=== PATIENT | female | born 1930 | race Caucasian/White ===

== ENCOUNTER → 2018-05-21 | Outpatient (REF) | payer MEDICARE, OTHER ==
[2018-05-21 12:01] LABS: HEMOGLOBIN 12.3 g/dl (12.0-15.5); MEAN CORPUSCULAR HGB CONC 32.4 g/dl (32.0-36.5); MEAN CORPUSCULAR VOLUME 92.7 fl (80.0-96.0); PLATELET COUNT, AUTOMATED 413 10^3/uL (150-450); WHITE BLOOD COUNT 6.6 10^3/uL (4.0-10.0)
[2018-05-21 12:34] LABS: ALT/SGPT 15 U/L (12-78); BILIRUBIN,TOTAL 0.4 MG/DL (0.2-1.0); BLOOD UREA NITROGEN 13 MG/DL (7-18); CALCIUM LEVEL 10.3 MG/DL (8.8-10.2); CARBON DIOXIDE LEVEL 23 MEQ/L (21-32); CHLORIDE LEVEL 105 MEQ/L (98-107); CHOLESTEROL LEVEL 154 MG/DL (<200); CHOLESTEROL RISK RATIO 2.298 (<5); CREATININE FOR GFR 0.94 MG/DL (0.55-1.30); GLOMERULAR FILTRATION RATE > 60.0 (>32); GLUCOSE, FASTING 106 MG/DL (70-100); HDL CHOLESTEROL 67 MG/DL (>40); LDL CHOLESTEROL 51 MG/DL (<100); NON-HDL-C 87 MG/DL; POTASSIUM SERUM 3.9 MEQ/L (3.5-5.1); SODIUM LEVEL 138 MEQ/L (136-145); TOTAL PROTEIN 7.3 GM/DL (6.4-8.2); TRIGLYCERIDES LEVEL 181 MG/DL (<150)
== END ==
LOC: M SFHCPLAZ 10:12
PROVIDERS: ATTEND Nurse Practitioner Adult Health
DX: I10 Essential (primary) hypertension (principal); I48.91 Unspecified atrial fibrillation; E03.9 Hypothyroidism, unspecified; E78.00 Pure hypercholesterolemia, unspecified
CPT/HCPCS: 36415; 80053; 80061; 84443; 85027; G0463

== ENCOUNTER → 2018-09-18 | Outpatient (CLI) | payer MEDICARE, OTHER | LOC: M SMT 15:04 | PROVIDERS: ATTEND Internal Medicine Cardiovascular Disease | DX: Z98.61 Coronary angioplasty status (principal) ==

== ENCOUNTER → 2018-11-05 | Outpatient (CLI) | payer MEDICARE, OTHER ==
[2018-11-05 16:16] LABS: CALCIUM LEVEL 9.9 MG/DL (8.8-10.2); CREATININE FOR GFR 0.97 MG/DL (0.55-1.30); GLOMERULAR FILTRATION RATE 57.8 (>32); POTASSIUM SERUM 4.7 MEQ/L (3.5-5.1)
== END ==
LOC: M SMT 11:12
PROVIDERS: ATTEND Internal Medicine Cardiovascular Disease
DX: I48.0 Paroxysmal atrial fibrillation (principal); Z98.61 Coronary angioplasty status

== ENCOUNTER 2019-01-27 23:42 | Emergency (ER) | payer MEDICARE, OTHER ==
[~2019-01-27] VITALS: Ht 160 cm; Wt 65.9 kg
[2019-01-27] MEDS ORDERED: ROSU5TAB5 PO (23:53)
[2019-01-27] MEDS ORDERED: LOSA50TA88 PO (23:53)
[2019-01-27] MEDS ORDERED: ELIQ2.5T PO (23:53)
[2019-01-27] MEDS ORDERED: BRIL90TA PO (23:53)
[2019-01-27] MEDS ORDERED: AMLO10TA5 PO (23:53)
[2019-01-27] MEDS ORDERED: OMEP20CA4 PO (23:53)
[2019-01-27] MEDS ORDERED: METO200T28 PO (23:53)
[2019-01-27] MEDS ORDERED: NITR4TASL SL (23:53)
[2019-01-27] MEDS ORDERED: LEVO75TA4 PO (23:53)
[2019-01-28 00:52] LABS: BASO % 0.2 % (0.0-1.0); EOS # 0.2 10^3/uL (0.0-0.5); EOS % 1.9 % (0.0-3.0); HEMATOCRIT 35.4 % (36.0-47.0); HEMOGLOBIN 11.8 g/dl (12.0-15.5); LYMPH % 23.6 % (24.0-44.0); MEAN CORPUSCULAR HEMOGLOBIN 31.5 pg (27.0-33.0); MEAN CORPUSCULAR HGB CONC 33.3 g/dl (32.0-36.5); MEAN CORPUSCULAR VOLUME 94.4 fl (80.0-96.0); MONO # 0.8 10^3/uL (0.0-0.8); MONO % 10.1 % (0.0-5.0); NEUTROPHILS # 5.3 10^3/uL (1.5-8.5); NEUTROPHILS % 63.8 % (36.0-66.0); PLATELET COUNT, AUTOMATED 341 10^3/uL (150-450); RED BLOOD COUNT 3.75 10^6/uL (4.00-5.40); WHITE BLOOD COUNT 8.3 10^3/uL (4.0-10.0)
[2019-01-28 01:02] LABS: INR 1.09; PROTHROMBIN TIME 13.8 SECONDS (11.8-14.0)
[2019-01-28 01:16] LABS: BLOOD UREA NITROGEN 21 MG/DL (7-18); CALCIUM LEVEL 9.9 MG/DL (8.8-10.2); CARBON DIOXIDE LEVEL 24 MEQ/L (21-32); CHLORIDE LEVEL 107 MEQ/L (98-107); CK-MB VALUE MASS 1.4 NG/ML (<3.6); CPK CREATINE PHOSPHOKINASE 85 U/L (26-192); CREATININE FOR GFR 1.12 MG/DL (0.55-1.30); GLUCOSE, FASTING 120 MG/DL (70-100); MB/CK RELATIVE INDEX 1.65 (< OR =4); POTASSIUM SERUM 4.5 MEQ/L (3.5-5.1); SODIUM LEVEL 141 MEQ/L (136-145); TROPONIN I < 0.02 NG/ML (< 0.10)
[2019-01-28 02:12] VITALS: BP 179/79
--- NOTE | 2019-01-28 08:12 | REP ---
Portable chest x-ray: Single view. History: Chest pain. No comparison study. Findings: Right hemidiaphragm is somewhat elevated. The aorta is tortuous. Heart size is borderline. No infiltrate is seen. There is some diffuse osteopenia. Impression: Somewhat elevated right hemidiaphragm. Borderline heart size. Otherwise no acute disease. Electronically Signed by Osito Bloom MD 01/28/2019 08:04 A
--- NOTE | 2019-01-28 08:30 | ECGEPIP ---
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
== END 2019-01-28 02:48 | disposition home or self-care (01) ==
LOC: M ED 23:42 → EDBD 23:42 → M ED 01-28 02:48
DX: R07.89 Other chest pain (principal); I44.0 Atrioventricular block, first degree; I25.10 Atherosclerotic heart disease of native coronary artery without angina pectoris; I10 Essential (primary) hypertension; K21.9 Gastro-esophageal reflux disease without esophagitis; E03.9 Hypothyroidism, unspecified; Z98.61 Coronary angioplasty status; Z95.5 Presence of coronary angioplasty implant and graft; Z79.01 Long term (current) use of anticoagulants; Z79.899 Other long term (current) drug therapy; Z91.012 Allergy to eggs

== ENCOUNTER 2019-04-06 09:24 | Emergency (ER) | payer MEDICARE ==
[~2019-04-06 09:24] MED LIST: AMLO10TA5 PO; BRIL90TA PO; ELIQ2.5T PO; LEVO75TA4 PO; LOSA50TA88 PO; METO200T28 PO; NITR4TASL SL; OMEP-172 PO; ROSU5TAB5 PO
[2019-04-06] MEDS ORDERED: NITROGLYCERIN 0.4 MG SUBL TABLET SL PRN (10:00)
[2019-04-06] MEDS ORDERED: ASPI81TA85 PO (10:02)
[2019-04-06] MEDS ORDERED: FURO20TA2 (10:02)
[2019-04-06] MEDS ORDERED: METO200T28 PO (10:02)
[2019-04-06] MEDS ORDERED: HYDR-4571 (10:02)
[2019-04-06] MEDS ORDERED: SPIR-10 (10:02)
[2019-04-06 10:03] LABS: BASO % 0.5 % (0.0-1.0); EOS # 0.2 10^3/uL (0.0-0.5); EOS % 2.3 % (0.0-3.0); HEMATOCRIT 39.4 % (36.0-47.0); HEMOGLOBIN 12.5 g/dl (12.0-15.5); LYMPH # 1.6 10^3/uL (1.5-5.0); LYMPH % 23.6 % (24.0-44.0); MEAN CORPUSCULAR HEMOGLOBIN 30.6 pg (27.0-33.0); MEAN CORPUSCULAR HGB CONC 31.7 g/dl (32.0-36.5); MEAN CORPUSCULAR VOLUME 96.6 fl (80.0-96.0); MONO # 0.5 10^3/uL (0.0-0.8); MONO % 8.1 % (0.0-5.0); NEUTROPHILS # 4.3 10^3/uL (1.5-8.5); NEUTROPHILS % 64.4 % (36.0-66.0); PLATELET COUNT, AUTOMATED 414 10^3/uL (150-450); RED BLOOD COUNT 4.08 10^6/uL (4.00-5.40); WHITE BLOOD COUNT 6.7 10^3/uL (4.0-10.0)
[2019-04-06 10:46] LABS: ALBUMIN 3.7 GM/DL (3.2-5.2); ALT/SGPT 15 U/L (12-78); BILIRUBIN,DIRECT < 0.1 MG/DL (0.0-0.2); BILIRUBIN,TOTAL 0.3 MG/DL (0.2-1.0); LIPASE 113 U/L (73-393); TOTAL PROTEIN 8.4 GM/DL (6.4-8.2)
[2019-04-06 11:02] LABS: BLOOD UREA NITROGEN 16 MG/DL (7-18); CALCIUM LEVEL 10.7 MG/DL (8.8-10.2); CARBON DIOXIDE LEVEL 24 MEQ/L (21-32); CHLORIDE LEVEL 105 MEQ/L (98-107); CK-MB VALUE MASS 1.5 NG/ML (<3.6); CPK CREATINE PHOSPHOKINASE 48 U/L (26-192); CREATININE FOR GFR 1.21 MG/DL (0.55-1.30); GLOMERULAR FILTRATION RATE 44.8 (>32); GLUCOSE, FASTING 103 MG/DL (70-100); MB/CK RELATIVE INDEX 3.12 (< OR =4); POTASSIUM SERUM 4.7 MEQ/L (3.5-5.1); SODIUM LEVEL 139 MEQ/L (136-145); TROPONIN I < 0.02 NG/ML (< 0.10)
--- NOTE | 2019-04-06 11:08 | REP ---
AP PORTABLE CHEST: 04/06/2019. COMPARISON: 01/27/2019. CLINICAL HISTORY: Chest pain. FINDINGS: Single view shows the lungs well inflated. There is some eventration of the right diaphragm. Some minor basilar fibroatelectatic change above it and minimal fibrotic change of the left diaphragm. No effusion or acute infiltrate identified. Heart size normal for AP portable technique. There is no vascular redistribution or edema. Minor apical pleural scarring is noted on the right greater than left. The aorta has some calcifications at the arch but without gross aneurysm. It is unchanged. Airway intact. No widening of the mediastinum. IMPRESSION: 1. Eventration of the right diaphragm, but otherwise negative portable chest for acute finding. Heart size appears magnified by AP portable technique, but is not grossly enlarged. Minor basilar fibroatelectatic changes are suggested bilaterally. No significant interval change. Electronically Signed by Corbin Neal MD 04/06/2019 07:50 P
--- NOTE | 2019-04-06 13:26 | ECGEPIP ---
[facility] - ED Test Date: 2019-04-06 Pat Name: MAZIN CAMILO Department: Room: - Gender: Female Manager Transfusion: benigno : 1930 Requested By: Johana Newton Order Number: [id number] Reading MD: Johana Newton Measurements Intervals [place] Rate: 50 P: 48 NE: 219 QRS: 57 QRSD: 98 T: 38 QT: 428 QTc: 391 Interpretive Statements SINUS BRADYCARDIA WITH FIRST DEGREE AV BLOCK MODERATE ST DEPRESSION PRWP Electronically Signed on 04-06-2019 13:26:22 EST by Johana Newton
[2019-04-06 16:06] LABS: CK-MB VALUE MASS 1.1 NG/ML (<3.6); CPK CREATINE PHOSPHOKINASE 45 U/L (26-192); MB/CK RELATIVE INDEX 2.44 (< OR =4); TROPONIN I < 0.02 NG/ML (< 0.10)
[2019-04-06 16:30] VITALS: BP 160/69
--- NOTE | 2019-04-06 18:27 | ECGEPIP ---
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
== END 2019-04-06 16:41 | disposition home or self-care (01) ==
LOC: EDBD 09:24 → M ED 09:24
DX: R07.9 Chest pain, unspecified (principal); R00.1 Bradycardia, unspecified; I44.0 Atrioventricular block, first degree; I48.91 Unspecified atrial fibrillation; I25.2 Old myocardial infarction; I11.9 Hypertensive heart disease without heart failure; I25.10 Atherosclerotic heart disease of native coronary artery without angina pectoris; E78.5 Hyperlipidemia, unspecified; E07.9 Disorder of thyroid, unspecified; I34.0 Nonrheumatic mitral (valve) insufficiency; Z79.899 Other long term (current) drug therapy; Z79.01 Long term (current) use of anticoagulants; Z79.82 Long term (current) use of aspirin; Z79.891 Long term (current) use of opiate analgesic

== ENCOUNTER 2019-11-28 08:50 | Emergency (ER) | payer MEDICARE ==
[~2019-11-28 08:50] MED LIST changes: -AMLO10TA5 PO; +AMLO1TAB25 PO; +ASPI81TA86 PO; +FURO20TA2 PO; +HYDR-4571 PO; -OMEP-172 PO; +OMEP1CAP73 PO; +SPIR-10 PO
[2019-11-28] MEDS ORDERED: NORCO, ANEXSIA 5/325MG TABLET (HYDROcodone/ACETAMINOPHEN) As Ordered ONE (09:34)
[2019-11-28] MEDS ORDERED: LOSARTAN 50MG TABLET As Ordered ONE (09:37)
[2019-11-28] MEDS ORDERED: amLODIPine 10 MG TAB As Ordered ONE (09:37)
--- NOTE | 2020-01-17 09:54 | REP ---
LUMBAR SPINE SERIES: 5-VIEWS This report was delayed due to a protracted network disruption experienced by this facility. HISTORY: Pain. FINDINGS: There is a levoconvex curve in the thoracolumbar spine and a mild dextroconvex curve in the lower lumbar spine. Lumbar vertebral body heights are preserved. Alignment is otherwise normal. There is diffuse degenerative disc disease most pronounced in the lumbar spine at L5-S1 and L3-4 and L1-2. There is osteoarthritic facet narrowing and sclerosis on the right at 4-5 and bilaterally at 5-1. Sacrum and SI joints are intact. No bony destructive lesion is seen. Psoas margins are symmetric. IMPRESSION: Advanced degenerative disc and osteoarthritic facet disease. Scoliosis. No acute abnormality. MTDD
== END 2019-11-28 12:04 | disposition home or self-care (01) ==
LOC: M ED 08:50
DX: M54.42 Lumbago with sciatica, left side (principal); M51.37 Other intervertebral disc degeneration, lumbosacral region; Z79.899 Other long term (current) drug therapy; Z79.01 Long term (current) use of anticoagulants

== ENCOUNTER 2020-01-24 10:54 | Emergency (ER) | payer MEDICARE ==
[~2020-01-24] VITALS: Ht 160 cm; Wt 69.5 kg
--- NOTE | 2020-01-24 11:30 | REPVR ---
PROCEDURE INFORMATION: Exam: CT Head Without Contrast Exam date and time: 01/24/2020 11:06 AM Age: 89 years old Clinical indication: Injury or trauma; Fall; Initial encounter; Blunt trauma (contusions or hematomas); Additional info: Fall on suzettequis TECHNIQUE: Imaging protocol: Computed tomography of the head without contrast. Radiation optimization: All CT scans at this facility use at least one of these dose optimization techniques: automated exposure control; mA and/or kV adjustment per patient size (includes targeted exams where dose is matched to clinical indication); or iterative reconstruction. COMPARISON: No relevant prior studies available. FINDINGS: Brain: The brain demonstrates diffuse volume loss. There is white matter hypodensity most consistent with chronic small vessel ischemic change. No visible evolving territorial infarct. No hemorrhage. Cerebral ventricles: The ventricles are enlarged in keeping with volume loss. Bones/joints: Unremarkable. No acute fracture. Paranasal sinuses: Visualized sinuses are unremarkable. No fluid levels. Mastoid air cells: Visualized mastoid air cells are well aerated. Soft tissues: Unremarkable. IMPRESSION: No acute intracranial abnormality seen. Electronically signed by: Yumiko Chacon On 01/24/2020 11:30:39 AM
[2020-01-24] MEDS ORDERED: ISOS30TA4 PO (11:32)
[2020-01-24] MEDS ORDERED: ASPE4LIQ TOP (11:32)
[2020-01-24] MEDS ORDERED: SENN-122 PO (11:32)
[2020-01-24] MEDS ORDERED: SERT-138 PO (11:32)
[2020-01-24] MEDS ORDERED: LOSA100T50 PO (11:32)
[2020-01-24] MEDS ORDERED: OMEP40CA97 PO (11:32)
[2020-01-24] MEDS ORDERED: ACET-683 PO (11:32)
[2020-01-24] MEDS ORDERED: SYNT75TA PO (11:33)
--- NOTE | 2020-01-24 12:19 | REPVR ---
PROCEDURE INFORMATION: Exam: XR Pelvis Exam date and time: 01/24/2020 11:30 AM Age: 89 years old Clinical indication: Hip pain and pelvic pain; Left hip; Additional info: Fall TECHNIQUE: Imaging protocol: XR pelvis. Views: 1 or 2 view. COMPARISON: CR Spine. Lumbosacral, complete 11/28/2019 9:34 AM FINDINGS: Bones/joints: No acute fracture seen. No dislocation. Severe primary osteoarthritic changes of the left hip with considerable joint space loss, subchondral sclerosis and degenerative remodeling of the left femoral head and acetabulum; chronic superior migration of the left femoral head with remodeling of the pelvis. Focal, sclerotic lesion in the right sacrum could represent a bone island. Soft tissues: Unremarkable. IMPRESSION: 1. No acute fracture seen. 2. Severe primary osteoarthritic changes of the left hip. Electronically signed by: Yumiko Chacon On 01/24/2020 12:19:24 PM
--- NOTE | 2020-01-24 12:21 | REPVR ---
PROCEDURE INFORMATION: Exam: XR Left Hip with Pelvis when Performed Exam date and time: 01/24/2020 11:30 AM Age: 89 years old Clinical indication: Hip pain; Left hip; Additional info: Fall TECHNIQUE: Imaging protocol: XR Left hip with pelvis when performed. Views: 2 or 3 views. COMPARISON: CR Spine. Lumbosacral, complete 11/28/2019 9:34 AM FINDINGS: Bones/joints: No acute fracture seen. No dislocation. Severe primary osteoarthritic changes of the left hip with considerable joint space loss, subchondral sclerosis and degenerative remodeling of the left femoral head and acetabulum; chronic superior migration of the left femoral head with remodeling of the pelvis. Soft tissues: Unremarkable. IMPRESSION: No acute fracture seen. Electronically signed by: Yumiko Chacon On 01/24/2020 12:21:06 PM
--- NOTE | 2020-01-24 12:26 | REPVR ---
PROCEDURE INFORMATION: Exam: XR Left Knee Exam date and time: 01/24/2020 11:30 AM Age: 89 years old Clinical indication: Pain; Knee; Left; Additional info: Fall TECHNIQUE: Imaging protocol: XR Left knee. Views: 4 or more views. COMPARISON: CR - Femur LEFT 01/24/2020 11:07:41 AM FINDINGS: Bones/joints: Diffuse osseous demineralization. No acute fracture seen. No dislocation. Mild primary osteoarthritic change of the left patellofemoral compartment. Mild spiking of the tibial spines. Soft tissues: Unremarkable. IMPRESSION: No acute fracture seen. Electronically signed by: Yumiko Chacon On 01/24/2020 12:25:34 PM
--- NOTE | 2020-01-24 12:55 | REPVR ---
PROCEDURE INFORMATION: Exam: XR Left Femur Exam date and time: 01/24/2020 11:07 AM Age: 89 years old Clinical indication: Pain; Thigh; Left TECHNIQUE: Imaging protocol: XR Left femur. Views: 2 views. COMPARISON: CR - Hip, Ap,Lat LEFT 01/24/2020 11:07:41 AM FINDINGS: Bones/joints: Diffuse osseous demineralization. No acute fracture seen. No dislocation. There may be slight medial compartment narrowing. Mild primary osteoarthritic change of the patellofemoral compartment. Soft tissues: Unremarkable. IMPRESSION: No acute fracture seen. Electronically signed by: Yumiko Chacon On 01/24/2020 12:55:28 PM
[2020-01-24] MEDS ORDERED: NS 500 ML IV ONE (13:15)
[2020-01-24 14:00] LABS: BASO % 0.4 % (0.0-1.0); EOS % 0.5 % (0.0-3.0); HEMATOCRIT 41.4 % (36.0-47.0); HEMOGLOBIN 13.2 g/dl (12.0-15.5); LYMPH # 1.4 10^3/uL (1.5-5.0); LYMPH % 17.9 % (24.0-44.0); MEAN CORPUSCULAR HEMOGLOBIN 30.3 pg (27.0-33.0); MEAN CORPUSCULAR HGB CONC 31.9 g/dl (32.0-36.5); MONO # 0.6 10^3/uL (0.0-0.8); MONO % 7.2 % (0.0-5.0); NEUTROPHILS # 5.7 10^3/uL (1.5-8.5); NEUTROPHILS % 72.6 % (36.0-66.0); PLATELET COUNT, AUTOMATED 343 10^3/uL (150-450); RED BLOOD COUNT 4.36 10^6/uL (4.00-5.40); WHITE BLOOD COUNT 7.9 10^3/uL (4.0-10.0)
[2020-01-24 14:24] LABS: ALBUMIN 3.6 GM/DL (3.2-5.2); BILIRUBIN,DIRECT 0.1 MG/DL (0.0-0.2); BILIRUBIN,TOTAL 0.4 MG/DL (0.2-1.0); CK-MB VALUE MASS 4.8 NG/ML (<3.6); MB/CK RELATIVE INDEX 6.23 (< OR =4); TOTAL PROTEIN 6.7 GM/DL (6.4-8.2); TROPONIN I 0.02 NG/ML (< 0.10)
[2020-01-24 15:33] VITALS: BP 111/61
--- NOTE | 2020-01-24 18:10 | ECGEPIP ---
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
== END 2020-01-24 15:43 | disposition home or self-care (01) ==
LOC: M ED 10:54
DX: S09.90XA Unspecified injury of head, initial encounter (principal); S70.02XA Contusion of left hip, initial encounter; S80.02XA Contusion of left knee, initial encounter; W01.10XA Fall on same level from slipping, tripping and stumbling with subsequent striking against unspecified object, initial encounter; Y92.002 Bathroom of unspecified non-institutional (private) residence as the place of occurrence of the external cause; Y93.E1 Activity, personal bathing and showering; Y99.9 Unspecified external cause status; M16.12 Unilateral primary osteoarthritis, left hip; I48.0 Paroxysmal atrial fibrillation; I10 Essential (primary) hypertension; E03.9 Hypothyroidism, unspecified; I25.10 Atherosclerotic heart disease of native coronary artery without angina pectoris; E78.5 Hyperlipidemia, unspecified; Z79.899 Other long term (current) drug therapy

== ENCOUNTER 2020-01-27 10:39 | Inpatient (IN) | payer MEDICARE ==
[~2020-01-27] VITALS: Ht 154.9 cm; Wt 62.3 kg
[~2020-01-27 10:39] MED LIST changes: +ACET-683 PO; +ASPE4LIQ TOP; +ISOS30TA4 PO; +LOSA100T50 PO; +OMEP40CA97 PO; +SENN-122 PO; +SERT-138 PO; +SYNT75TA PO
--- NOTE | 2020-01-27 11:53 | REPVR ---
PROCEDURE INFORMATION: Exam: CT Lumbar Spine Without Contrast Exam date and time: 01/27/2020 11:09 AM Age: 89 years old Clinical indication: Injury or trauma; Fall; Initial encounter; Blunt trauma (contusions or hematomas); Injury date: 01/24/2020; Additional info: Known ddd, fall with left l4-s1 radicular pain TECHNIQUE: Imaging protocol: Computed tomography images of the lumbar spine without contrast. Radiation optimization: All CT scans at this facility use at least one of these dose optimization techniques: automated exposure control; mA and/or kV adjustment per patient size (includes targeted exams where dose is matched to clinical indication); or iterative reconstruction. COMPARISON: CR Spine. Lumbosacral, complete 11/28/2019 9:34 AM FINDINGS: Vertebrae: There is a thoracolumbar levoscoliosis with a lumbar dextroscoliosis. There is reversal of the normal lumbar lordosis. There is 3 mm of grade 1 retrolisthesis of L3 with respect to L4 and L4 with respect to L5. Normal vertebral body alignment is otherwise preserved. There is inferior endplate depression at L4 with mild loss of height, potentially acute injury. There is a nonspecific sclerotic focus within the right sacrum. Discs/Spinal canal/Neural foramina: There is severe multilevel intervertebral disc space loss. At L2/3, there is diffuse disc bulging. There is mild facet hypertrophy. There is mild left neural foraminal narrowing. At L3/4, there is diffuse disc bulging/uncovering related to listhesis. There is moderate facet hypertrophy. There is mild right and moderate left neural foraminal narrowing. At L4/5, there is diffuse disc bulging/uncovering related to listhesis. There is moderate facet hypertrophy. There is mild right and moderate to severe left neural foraminal narrowing. At L5/S1, there is shallow disc bulging. There is mild facet hypertrophy. There is moderate right and mild left neural foraminal narrowing. Soft tissues: Unremarkable. IMPRESSION: 1. L4 inferior endplate depression, potentially worrisome for acute injury. 2. Degenerative disc disease and spondylosis in a background of scoliosis. Electronically signed by: Marta Barkley On 01/27/2020 11:53:04 AM
[2020-01-27] MEDS ORDERED: KETOROLAC 30 MG/ML 1ML VIAL IV ONE (14:00)
[2020-01-27] MEDS: oxyCODONE 5MG TAB PO PRN (14:46)
[2020-01-27 15:02] LABS: BASO % 0.3 % (0.0-1.0); EOS # 0.1 10^3/uL (0.0-0.5); EOS % 0.8 % (0.0-3.0); HEMATOCRIT 39.5 % (36.0-47.0); HEMOGLOBIN 12.9 g/dl (12.0-15.5); LYMPH # 1.8 10^3/uL (1.5-5.0); LYMPH % 23.7 % (24.0-44.0); MEAN CORPUSCULAR HEMOGLOBIN 30.8 pg (27.0-33.0); MEAN CORPUSCULAR HGB CONC 32.7 g/dl (32.0-36.5); MEAN CORPUSCULAR VOLUME 94.3 fl (80.0-96.0); MONO # 0.6 10^3/uL (0.0-0.8); MONO % 7.9 % (0.0-5.0); NEUTROPHILS # 5.1 10^3/uL (1.5-8.5); NEUTROPHILS % 66.1 % (36.0-66.0); PLATELET COUNT, AUTOMATED 354 10^3/uL (150-450); RED BLOOD COUNT 4.19 10^6/uL (4.00-5.40); WHITE BLOOD COUNT 7.7 10^3/uL (4.0-10.0)
[2020-01-27 15:14] LABS: CALCIUM LEVEL 9.9 MG/DL (8.8-10.2); CREATININE FOR GFR 1.1 MG/DL (0.55-1.30); GLOMERULAR FILTRATION RATE 49.9 (>32); POTASSIUM SERUM 3.5 MEQ/L (3.5-5.1)
--- NOTE | 2020-01-27 15:40 | HPEPDOC ---
General Date of Admission Jan 27, 2020 at 14:08 Date of Service: Jan 27, 2020 Chief Complaint The patient is a 89-year-old female admitted with a reason for visit of Vertebral Fracture,Closed. Source: Patient History of Present Illness 89 year old female from [facility] had a mechanical fall 3 days ago on 01/24/20 when she was trying to get into the shower. She tripped over the wheel of her parked walker and slid down the fall to the floor. She was brought to the ED then and had xrays of the hip, leg , CT head done all was negative and was sent back. Today she is brought back to the ED as she has been needing a lot of help with her ADLs and any minor movement like getting out of bed is causing her severe pain in her lower back and left leg. In ED CT lumber spine showed L4 vertebral lower end plate compression fracture acute along with chronic b/l multilevel mild to mederate facet hypertrophy and moderate to severe foraminal narrowing more on the left. Patient was admitted for pain control and inability to ambulate and perform her ADLs. Home Medications Scheduled Apixaban (Eliquis) 2.5 Mg Tablet, 2.5 MG PO BID, (Reported) Aspirin (Aspir 81) 81 Mg Tablet.dr, 81 MG PO QPM, (Reported) Furosemide (Furosemide) 20 Mg Tablet, 20 MG PO DAILY, (Reported) Hydrocodone/Acetaminophen (Hydrocodone-Acetamin 5-325 mg) 1 Each Tablet, 1 TAB PO QID, (Reported) 0900/1300/1700/2100 Isosorbide Mononitrate (Isosorbide Mononitrate ER) 30 Mg Tab.er.24h, 30 MG PO DAILY, (Reported) Levothyroxine Sodium (Synthroid) 75 Mcg Tablet, 75 MCG PO DAILY, (Reported) PT SELF ADMINISTERS Losartan Potassium (Losartan Potassium) 100 Mg Tablet, 100 MG PO DAILY, (Reported) Metoprolol Succinate (Metoprolol Succinate) 200 Mg Tab.er.24h, 200 MG PO QHS, (Reported) HELD SINCE 01/24/20 UNTIL SEEN BY PCP ON 01/28/20 Omeprazole (Omeprazole) 40 Mg Capsule.dr, 40 MG PO DAILY, (Reported) Rosuvastatin Calcium (Rosuvastatin Calcium) 5 Mg Tablet, 5 MG PO QPM, (Reported) Sertraline HCl (Sertraline HCl) 100 Mg Tablet, 100 MG PO DAILY, (Reported) Spironolactone (Spironolactone) 25 Mg Tablet, 25 MG PO QPM, (Reported) Scheduled PRN Acetaminophen (Acetaminophen) 500 Mg Tablet, 1,000 MG PO Q8H PRN for PAIN, (Reported) Lidocaine HCl (Aspercreme Lidocaine) 73 Ml Liqd.lucero, 1 APLCT TOP Q6H PRN for ARTHRITIS, (Reported) APPLY TO HANDS Nitroglycerin (Nitrostat) 0.4 Mg Tab.subl, 0.4 MG SL Q5MP PRN for CHEST PAIN, (Reported) 1st sign of attack; may repeat every 5 mins; if pain persists after 3 in 15 min, medical attention is recommended Sennosides/Docusate Sodium (Senna-S 8.6-50 mg Tablet) 8.6 Mg-50 Mg Tablet, 1 TAB PO QHS PRN for CONSTIPATION, (Reported) Allergies Coded Allergies: No Known Allergies (Unverified , 04/06/19) Past Medical History Medical History Hypertension, Hypothyroid, CAD s/p stents in 2018, HLD, Aroxysmal A fib, Right leg DVT, GERD, Chronic left hip pain, OA, left leg radiculopathy, Surgical History cardiac stents 2018, BILATERAL CATARACT SURGERY Family History Significant Family History: Heart disease (father) Social History * Smoker: non-smoker Alcohol: Denies Drugs: denies A-FIB/CHADSVASC A-FIB History Current/History of A-Fib/PAF?: Yes Current PO Anticoag Therapy: Yes Review of Systems Constitutional: Denies: Chills, Fever, Night Sweats Eyes: Denies: Pain, Vision change ENT: Denies: Head Aches, Ear Pain, Dysphagia Skin: Denies: Rash, Lesions, Breakdown Pulmonary: Denies: Dyspnea, Cough Cardiovascular: Denies: Chest Pain, Palpitations, Orthopnea, Paroxysmal Noc. Dyspnea, Lt Headedness Gastrointestinal: Denies: Nausea, Vomiting, Abdominal Pain, Diarrhea Genitourinary: Denies: Dysuria, Frequency, Incontinence, Retention Musculoskeletal: Reports: Back Pain, Leg Pain Neurological: Denies: Weakness, Numbness, Change in speech, Confusion Physical Examination General Exam: Positive: Alert, Cooperative, No Acute Distress Eye Exam: Positive: PERRLA, Conjunctiva & lids normal, EOMI; Negative: Sclera icteric ENT Exam: Positive: Atraumatic, Mucous membr. moist/pink, Pharynx Normal Neck Exam: Positive: Supple; Negative: JVD, thyromegaly Chest Exam: Positive: Clear to auscultation, Normal air movement Heart Exam: Positive: Rate Normal, Regular Rhythm, Normal S1, Normal S2; Negative: Murmurs, Rubs Abdomen Exam: Positive: Normal bowel sounds, Soft; Negative: Tenderness, Hepatospenomegaly Extremity Exam: Positive: Normal pulses; Negative: Clubbing, Cyanosis, Edema Skin Exam: Positive: Nl turgor and temperature; Negative: Breakdown, Lesion Vital Signs Vital Signs Date Time Temp Pulse Resp B/P (MAP) Pulse Ox O2 Delivery O2 Flow Rate FiO2 01/27/20 15:21 97.0 84 18 110/7 (41) 100 Room Air Laboratory Data Labs 24H Laboratory Tests 2 01/27/20 14:30: Immature Granulocyte % (Auto) 1.2, Neutrophils (%) (Auto) 66.1H, Lymphocytes (%) (Auto) 23.7L, Monocytes (%) (Auto) 7.9H, Eosinophils (%) (Auto) 0.8, Basophils (%) (Auto) 0.3, Neutrophils # (Auto) 5.1, Lymphocytes # (Auto) 1.8, Monocytes # (Auto) 0.6, Eosinophils # (Auto) 0.1, Basophils # (Auto) 0.0, Nucleated Red Blood Cells % (auto) 0.0, Anion Gap 11, Glomerular Filtration Rate 49.9, Calcium Level 9.9 CBC/BMP Laboratory Tests 01/27/20 14:30 Assessment/Plan 89 year old female from [facility] had a mechanical fall 3 days ago on 01/24/20 when she was trying to get into the shower. She tripped over the wheel of her parked walker and slid down the fall to the floor. She was brought to the ED then and had xrays of the hip, leg , CT head done all was negative and was sent back. Today she is brought back to the ED as she has been needing a lot of help with her ADLs and any minor movement like getting out of bed is causing her severe pain in her lower back and left leg. In ED CT lumber spine showed L4 vertebral lower end plate compression fracture acute along with chronic b/l multilevel mild to mederate facet hypertrophy and moderate to severe foraminal narrowing more on the left. Patient was admitted for pain control and inability to ambulate and perform her ADLs. Lumber vertebral compression # s/p mechanical fall. pain control with tylenol, oxycodone. patient refused IV insertion and IV meds. lidoderm patch and diclofenac patch Pt/OT Paroxysmal Afib continue metoprolol, eliquis. Hypertension BP very well controlled for an 89 year old frail elderly lady will reduce dose of losartan continue metoprolol Hypothyroid synthroid CAD s/p stents in 2018, no issues at present HLD, statin Right leg DVT, on eliquis GERD, PPI Chronic left hip pain, OA, left leg radiculopathy PT/OT Plan / VTE VTE Prophylaxis Ordered?: Yes CAROLYN RÍOS MD Jan 27, 2020 15:40
[2020-01-27 16:00] VITALS: BP 125/66
[2020-01-27] MEDS: APIXABAN 2.5 MG TAB (ELIQUIS) PO SCH (20:43)
[2020-01-27] MEDS: DICLOFENAC EPOLAMINE 1.3 % PATCH TOP SCH (20:43)
[2020-01-27] MEDS: SPIRONOLACTONE 25 MG TAB PO SCH (20:43)
[2020-01-27] MEDS: ASPIRIN 81 MG ENTERIC TAB PO SCH (20:44)
[2020-01-27] MEDS: ROSUVASTATIN 10 MG TAB (CRESTOR) PO SCH (20:44)
[2020-01-27] MEDS: METOPROLOL SUCC (TopROL XL) 100MG *XL* TAB PO SCH (20:44)
[2020-01-27] MEDS: MIRALAX *UNIT DOSE* 17GM PACKET PO SCH ×2 (20:45→21:00)
[2020-01-27] MEDS: SENOKOT S TAB PO SCH (20:45)
[2020-01-27] MEDS: ACETAMINOPHEN 500 MG TAB PO PRN (20:46)
[2020-01-27] MEDS: **NOTE PATIENT COMMENT** MISC XX SCH (20:46)
[2020-01-27 22:00] VITALS: BP 150/72
[2020-01-28 05:57] LABS: BASO % 0.4 % (0.0-1.0); EOS # 0.1 10^3/uL (0.0-0.5); EOS % 2.2 % (0.0-3.0); HEMATOCRIT 37.3 % (36.0-47.0); HEMOGLOBIN 12.1 g/dl (12.0-15.5); LYMPH # 1.1 10^3/uL (1.5-5.0); LYMPH % 19.4 % (24.0-44.0); MEAN CORPUSCULAR HEMOGLOBIN 30.5 pg (27.0-33.0); MEAN CORPUSCULAR HGB CONC 32.4 g/dl (32.0-36.5); MONO # 0.5 10^3/uL (0.0-0.8); MONO % 9.3 % (0.0-5.0); NEUTROPHILS # 3.7 10^3/uL (1.5-8.5); NEUTROPHILS % 67.2 % (36.0-66.0); PLATELET COUNT, AUTOMATED 332 10^3/uL (150-450); RED BLOOD COUNT 3.97 10^6/uL (4.00-5.40); WHITE BLOOD COUNT 5.5 10^3/uL (4.0-10.0)
[2020-01-28 06:00] VITALS: BP 131/65
[2020-01-28 06:15] LABS: CREATININE FOR GFR 1.14 MG/DL (0.55-1.30); GLOMERULAR FILTRATION RATE 47.9 (>32); POTASSIUM SERUM 3.5 MEQ/L (3.5-5.1)
[2020-01-28] MEDS: ACETAMINOPHEN 500 MG TAB PO PRN ×2 (06:42→16:03)
[2020-01-28] MEDS: LEVOTHYROXINE 75MCG TABLET (0.075MG) PO SCH (06:42)
[2020-01-28] MEDS: ISOSORBIDE MON. (IMDUR) 30 MG XR TAB PO SCH (08:20)
[2020-01-28] MEDS: SERTRALINE 100 MG TAB PO SCH (08:20)
[2020-01-28] MEDS: LOSARTAN 50MG TABLET PO SCH (08:22)
[2020-01-28] MEDS: FUROSEMIDE 20 MG TAB PO SCH (08:22)
[2020-01-28] MEDS: APIXABAN 2.5 MG TAB (ELIQUIS) PO SCH ×2 (08:22→20:44)
[2020-01-28] MEDS: DICLOFENAC EPOLAMINE 1.3 % PATCH TOP SCH ×2 (08:22→20:30)
[2020-01-28] MEDS: MIRALAX *UNIT DOSE* 17GM PACKET PO SCH ×2 (08:23→20:44)
[2020-01-28] MEDS: OMEPRAZOLE 20 MG CAP PO SCH (08:23)
[2020-01-28] MEDS: SENOKOT S TAB PO SCH ×2 (08:23→20:45)
[2020-01-28] MEDS: oxyCODONE 5MG TAB PO PRN (08:24)
[2020-01-28] MEDS ORDERED: LOSARTAN 50MG TABLET PO SCH (09:00)
[2020-01-28] MEDS ORDERED: ENOXAPARIN 30MG/0.3ML SYRINGE (J1650 PER 10MG) SC SCH (09:00)
[2020-01-28] MEDS ORDERED: oxyCODONE 5MG TAB PO PRN ×2 (10:30→21:00)
--- NOTE | 2020-01-28 13:20 | IPNPDOC ---
Text Note Date of Service The patient was seen on 01/28/20. NOTE Subjective: Pt notes lumbar pain. No weakness. No alarming signs. Denies CP/S OB/palpitations. Objective: Vitals: (see below) General: No acute distress, laying comfortably in bed. HEENT: Moist mucous membranes. Neck: No JVD or lymphadenopathy Cardiac: RRR, No murmurs Pulm: Clear to auscultation b/l. No wheezing, rhonchi Abd: NT/ND + BS Ext: No edema or cyanosis. Strength 5/5 BLE. Labs (see below) Images: CT L spine IMPRESSION: 1. L4 inferior endplate depression, potentially worrisome for acute injury. 2. Degenerative disc disease and spondylosis in a background Assessment/Plan Lumbar vertebral compression # s/p mechanical fall. pain control with tylenol, oxycodone. patient refused IV insertion and IV meds. lidoderm patch and diclofenac patch Pt/OT - MRI L spine ordered - Ortho consult Paroxysmal Afib continue metoprolol, eliquis. Hypertension BP very well controlled for an 89 year old frail elderly lady will reduce dose of losartan continue metoprolol Hypothyroid synthroid CAD s/p stents in 2018, no issues at present HLD, statin Right leg DVT, on eliquis GERD, PPI Chronic left hip pain, OA, left leg radiculopathy PT/OT VS,Fishbone, I+O VS, Fishbone, I+O Laboratory Tests 01/27/20 14:30 01/28/20 05:34 Vital Signs Date Time Temp Pulse Resp B/P (MAP) Pulse Ox O2 Delivery O2 Flow Rate FiO2 01/28/20 09:00 16 01/28/20 08:20 131/65 01/28/20 06:00 97.7 59 94 Room Air I&O- Last 24 Hours up to 6 AM 01/28/20 06:00 Intake Total 500 ml Balance 500 ml JAGDISH JONES MD Jan 28, 2020 13:20
[2020-01-28 14:00] VITALS: BP 109/59
--- NOTE | 2020-01-28 14:22 | REPVR ---
PROCEDURE INFORMATION: Exam: MR Lumbar Spine Without Contrast. Exam date and time: 01/28/2020 12:20 PM Age: 89 years old Clinical indication: Pain and injury or trauma; Initial encounter; Blunt trauma (contusions or hematomas); Injury date: 01/19/2020; Patient HX: Low back pain since fall 1 week prior; Additional info: Lumbar FX TECHNIQUE: Imaging protocol: Multiplanar magnetic resonance images of the lumbar spine without intravenous contrast. COMPARISON: CT Spine, lumbar w/o contrast 01/27/2020 11:11 AM FINDINGS: Vertebrae: There is a lumbar levoscoliosis. There is 3 mm of grade 1 retrolisthesis of L2 with respect to L3, L3 with respect to L4 and L4 with respect to L5. There are inferior endplate changes at L4, with associated inferior endplate depression and widening of the L4/5 intervertebral disc space. There is diffuse edema within the L4 body. Appearance raises the possibility of a hyperextension type injury. Spinal cord: Normal signal. No cord compression. There is an incidental lipoma of the filum terminalis. L1-L2: There is shallow disc bulging. There is mild facet hypertrophy. The spinal canal and neural foramina are patent. L2-L3: There is shallow disc bulging. There is mild facet and ligamentous hypertrophy. There is mild left neural foraminal narrowing L3-L4: There is disc bulging/uncovering related to listhesis. There is moderate facet hypertrophy. There is mild right and ebsk-as-spsclhjy left neural foraminal narrowing.. L4-L5: There is diffuse disc bulging. There is moderate facet and ligamentous hypertrophy. There is mild right and moderate to severe left neural foraminal narrowing. L5-S1: There is shallow disc bulging. There is erou-au-zlrxhani facet hypertrophy. There is kkin-hm-ltthuyde right and mild left neural foraminal narrowing. Disc material comes into close contact with the exiting right L4 nerve root.. Soft tissues: Unremarkable. IMPRESSION: 1. Suspected L4 inferior endplate fracture with associated widening of the intervertebral disc space, potentially hyperextension injury. 2. Degenerative disc disease and spondylosis. Electronically signed by: Marta Barkley On 01/28/2020 14:22:04 PM
[2020-01-28] MEDS: LIDOCAINE 5% (LIDODERM) PATCH TD SCH (16:03)
[2020-01-28] MEDS: **NOTE PATIENT COMMENT** MISC XX SCH (20:29)
[2020-01-28] MEDS: ASPIRIN 81 MG ENTERIC TAB PO SCH (20:44)
[2020-01-28] MEDS: ROSUVASTATIN 10 MG TAB (CRESTOR) PO SCH (20:44)
[2020-01-28] MEDS: SPIRONOLACTONE 25 MG TAB PO SCH (20:44)
[2020-01-28] MEDS: METOPROLOL SUCC (TopROL XL) 100MG *XL* TAB PO SCH (20:45)
[2020-01-28 22:00] VITALS: BP 138/67
[2020-01-29] MEDS: ACETAMINOPHEN 500 MG TAB PO PRN ×2 (04:31→12:40)
[2020-01-29] MEDS: LEVOTHYROXINE 75MCG TABLET (0.075MG) PO SCH (05:41)
[2020-01-29 06:00] VITALS: BP 137/70
[2020-01-29] MEDS: LIDOCAINE 5% (LIDODERM) PATCH TD SCH (08:15)
[2020-01-29] MEDS: DICLOFENAC EPOLAMINE 1.3 % PATCH TOP SCH ×2 (08:15→21:56)
[2020-01-29] MEDS: OMEPRAZOLE 20 MG CAP PO SCH (08:16)
[2020-01-29] MEDS: SENOKOT S TAB PO SCH ×2 (08:17→21:00)
[2020-01-29] MEDS: FUROSEMIDE 20 MG TAB PO SCH (08:17)
[2020-01-29] MEDS: ISOSORBIDE MON. (IMDUR) 30 MG XR TAB PO SCH (08:18)
[2020-01-29] MEDS: APIXABAN 2.5 MG TAB (ELIQUIS) PO SCH ×2 (08:19→21:55)
[2020-01-29] MEDS: SERTRALINE 100 MG TAB PO SCH (08:19)
[2020-01-29] MEDS: LOSARTAN 50MG TABLET PO SCH (08:19)
[2020-01-29] MEDS: MIRALAX *UNIT DOSE* 17GM PACKET PO SCH ×2 (08:20→21:00)
--- NOTE | 2020-01-29 13:08 | IPNPDOC ---
Text Note Date of Service The patient was seen on 01/29/20. NOTE Subjective: No acute changes overnight. No CP/SOB/palpitations. Objective: Vitals: (see below) General: No acute distress, laying comfortably in bed. HEENT: Moist mucous membranes. Neck: No JVD or lymphadenopathy Cardiac: RRR, No murmurs Pulm: Clear to auscultation b/l. No wheezing, rhonchi Abd: NT/ND + BS Ext: No edema or cyanosis. Strength 5/5 BLE. Distal pulses intact. Labs (see below) Images: CT L spine IMPRESSION: 1. L4 inferior endplate depression, potentially worrisome for acute injury. 2. Degenerative disc disease and spondylosis in a background MRI L spine IMPRESSION: 1. Suspected L4 inferior endplate fracture with associated widening of the intervertebral disc space, potentially hyperextension injury. 2. Degenerative disc disease and spondylosis. Assessment/Plan Lumbar vertebral compression # s/p mechanical fall. pain control with tylenol, oxycodone. lidoderm patch and diclofenac patch Pt/OT - MRI L spine (see above) - Ortho consult; pending input Paroxysmal Afib continue metoprolol, eliquis. Hypertension controlled Hypothyroid Synthroid CAD s/p stents in 2018, no issues at present HLD, statin Right leg DVT, on eliquis GERD, PPI Chronic left hip pain, OA, left leg radiculopathy PT/OT DVT prophy: Eliquis VS,Fishbone, I+O VS, Fishbone, I+O Vital Signs Date Time Temp Pulse Resp B/P (MAP) Pulse Ox O2 Delivery O2 Flow Rate FiO2 01/29/20 08:18 137/70 01/29/20 06:00 97.2 62 18 96 Room Air I&O- Last 24 Hours up to 6 AM 01/29/20 05:59 Intake Total 450 ml Balance 450 ml JAGDISH JONES MD Jan 29, 2020 13:08
[2020-01-29 14:00] VITALS: BP 133/65
[2020-01-29] MEDS: ASPIRIN 81 MG ENTERIC TAB PO SCH (21:55)
[2020-01-29] MEDS: METOPROLOL SUCC (TopROL XL) 100MG *XL* TAB PO SCH (21:55)
[2020-01-29] MEDS: **NOTE PATIENT COMMENT** MISC XX SCH (21:56)
[2020-01-29] MEDS: ROSUVASTATIN 10 MG TAB (CRESTOR) PO SCH (21:56)
[2020-01-29] MEDS: SPIRONOLACTONE 25 MG TAB PO SCH (21:56)
[2020-01-29 22:00] VITALS: BP 123/69
[2020-01-30] MEDS: LEVOTHYROXINE 75MCG TABLET (0.075MG) PO SCH (05:56)
[2020-01-30] MEDS: ACETAMINOPHEN 500 MG TAB PO PRN (05:57)
[2020-01-30 06:00] VITALS: BP 127/69
[2020-01-30 08:26] LABS: BASO % 0.3 % (0.0-1.0); EOS # 0.2 10^3/uL (0.0-0.5); EOS % 3.5 % (0.0-3.0); HEMATOCRIT 38.4 % (36.0-47.0); HEMOGLOBIN 12.4 g/dl (12.0-15.5); LYMPH # 1.1 10^3/uL (1.5-5.0); LYMPH % 17.3 % (24.0-44.0); MEAN CORPUSCULAR HEMOGLOBIN 30.5 pg (27.0-33.0); MEAN CORPUSCULAR HGB CONC 32.3 g/dl (32.0-36.5); MEAN CORPUSCULAR VOLUME 94.6 fl (80.0-96.0); MONO # 0.5 10^3/uL (0.0-0.8); MONO % 7.5 % (0.0-5.0); NEUTROPHILS # 4.4 10^3/uL (1.5-8.5); NEUTROPHILS % 69.8 % (36.0-66.0); PLATELET COUNT, AUTOMATED 337 10^3/uL (150-450); RED BLOOD COUNT 4.06 10^6/uL (4.00-5.40); WHITE BLOOD COUNT 6.3 10^3/uL (4.0-10.0)
--- NOTE | 2020-01-30 09:06 | IPNPDOC ---
Text Note Date of Service The patient was seen on 01/30/20. NOTE Subjective: Pt confused intermittently; No focal deficits. No CP/SOB/palpitat ions. No N/V/abd pain. Opioids held yesterday. Objective: Vitals: (see below) General: No acute distress, laying comfortably in bed. HEENT: Moist mucous membranes. Neck: No JVD or lymphadenopathy Cardiac: RRR, No murmurs Pulm: Clear to auscultation b/l. No wheezing, rhonchi Abd: NT/ND + BS Ext: No edema or cyanosis. Strength 5/5 BLE. Distal pulses intact. Labs (see below) Images: CT L spine IMPRESSION: 1. L4 inferior endplate depression, potentially worrisome for acute injury. 2. Degenerative disc disease and spondylosis in a background MRI L spine IMPRESSION: 1. Suspected L4 inferior endplate fracture with associated widening of the intervertebral disc space, potentially hyperextension injury. 2. Degenerative disc disease and spondylosis. Assessment/Plan Metabolic encephalopathy 2/2 UTI and opioids (held) - Start rocephin pend cx - bld/urine cx - afebrile Lumbar vertebral compression # s/p mechanical fall. pain control with tylenol, oxycodone. lidoderm patch and diclofenac patch Pt/OT - MRI L spine (see above) - Ortho consult; pending input Paroxysmal Afib continue metoprolol, eliquis. Hypertension controlled Hypothyroid Synthroid CAD s/p stents in 2018, no issues at present HLD, statin Right leg DVT, on eliquis GERD, PPI Chronic left hip pain, OA, left leg radiculopathy PT/OT DVT prophy: Eliquis Pt/daughter agreeable with back brace; ortho ordered. VS,Fishbone, I+O VS, Fishbone, I+O Laboratory Tests 01/30/20 08:04 Vital Signs Date Time Temp Pulse Resp B/P (MAP) Pulse Ox O2 Delivery O2 Flow Rate FiO2 01/30/20 06:00 98.3 72 18 127/69 (88) 96 Room Air I&O- Last 24 Hours up to 6 AM 01/30/20 06:00 Intake Total 360 ml Output Total 250 ml Balance 110 ml JAGDISH JONES MD Jan 30, 2020 09:06
[2020-01-30] MEDS: APIXABAN 2.5 MG TAB (ELIQUIS) PO SCH ×2 (10:05→22:23)
[2020-01-30] MEDS: SENOKOT S TAB PO SCH ×2 (10:05→21:00)
[2020-01-30] MEDS: SERTRALINE 100 MG TAB PO SCH (10:05)
[2020-01-30] MEDS: OMEPRAZOLE 20 MG CAP PO SCH (10:05)
[2020-01-30] MEDS: FUROSEMIDE 20 MG TAB PO SCH (10:06)
[2020-01-30] MEDS: MIRALAX *UNIT DOSE* 17GM PACKET PO SCH ×2 (10:07→21:00)
[2020-01-30] MEDS: ISOSORBIDE MON. (IMDUR) 30 MG XR TAB PO SCH (10:07)
[2020-01-30] MEDS: LIDOCAINE 5% (LIDODERM) PATCH TD SCH (10:07)
[2020-01-30] MEDS: LOSARTAN 50MG TABLET PO SCH (10:07)
[2020-01-30] MEDS: DICLOFENAC EPOLAMINE 1.3 % PATCH TOP SCH ×2 (10:08→22:23)
[2020-01-30 10:50] LABS: ALBUMIN 3.1 GM/DL (3.2-5.2); BILIRUBIN,TOTAL 0.3 MG/DL (0.2-1.0); CALCIUM LEVEL 10.1 MG/DL (8.8-10.2); CREATININE FOR GFR 1.26 MG/DL (0.55-1.30); GLOMERULAR FILTRATION RATE 42.7 (>32); POTASSIUM SERUM 3.6 MEQ/L (3.5-5.1); THYROID STIMULATING HORMONE 93.8 uIU/ML (0.358-3.740); TOTAL PROTEIN 6.2 GM/DL (6.4-8.2)
[2020-01-30] MEDS: cefTRIAXone SOD 1 GM in D5W MINI-BAG PLUS 50 ML IV SCH ×2 (11:04→12:56)
[2020-01-30 14:00] VITALS: BP 124/71
[2020-01-30] MEDS ORDERED: LEVOTHYROXINE 25MCG TABLET (0.025MG) PO ONE (16:00)
[2020-01-30 16:28] LABS: FREE T3 0.9 PG/ML (2.2-4.0); FREE T4 0.54 NG/DL (0.76-1.46)
[2020-01-30] MEDS: **NOTE PATIENT COMMENT** MISC XX SCH (21:00)
[2020-01-30 22:00] VITALS: BP 115/54
[2020-01-30] MEDS: ROSUVASTATIN 10 MG TAB (CRESTOR) PO SCH (22:23)
[2020-01-30] MEDS: METOPROLOL SUCC (TopROL XL) 100MG *XL* TAB PO SCH (22:23)
[2020-01-30] MEDS: SPIRONOLACTONE 25 MG TAB PO SCH (22:23)
[2020-01-30] MEDS: ASPIRIN 81 MG ENTERIC TAB PO SCH (22:23)
[2020-01-31] MEDS: LEVOTHYROXINE 100MCG TABLET (0.1MG) PO SCH (05:28)
[2020-01-31] MEDS: ACETAMINOPHEN 500 MG TAB PO PRN ×2 (05:29→17:26)
[2020-01-31 06:00] VITALS: BP 148/67
[2020-01-31 08:54] LABS: BASO % 0.5 % (0.0-1.0); EOS # 0.2 10^3/uL (0.0-0.5); EOS % 3.9 % (0.0-3.0); HEMATOCRIT 40.4 % (36.0-47.0); HEMOGLOBIN 12.9 g/dl (12.0-15.5); LYMPH # 1.4 10^3/uL (1.5-5.0); LYMPH % 22.3 % (24.0-44.0); MEAN CORPUSCULAR HEMOGLOBIN 30.8 pg (27.0-33.0); MEAN CORPUSCULAR HGB CONC 31.9 g/dl (32.0-36.5); MEAN CORPUSCULAR VOLUME 96.4 fl (80.0-96.0); MONO # 0.5 10^3/uL (0.0-0.8); MONO % 7.9 % (0.0-5.0); NEUTROPHILS # 3.9 10^3/uL (1.5-8.5); NEUTROPHILS % 63.5 % (36.0-66.0); PLATELET COUNT, AUTOMATED 337 10^3/uL (150-450); RED BLOOD COUNT 4.19 10^6/uL (4.00-5.40); WHITE BLOOD COUNT 6.2 10^3/uL (4.0-10.0)
[2020-01-31 09:18] LABS: CALCIUM LEVEL 9.8 MG/DL (8.8-10.2); CREATININE FOR GFR 1.08 MG/DL (0.55-1.30); POTASSIUM SERUM 3.8 MEQ/L (3.5-5.1)
[2020-01-31] MEDS: OMEPRAZOLE 20 MG CAP PO SCH (09:18)
[2020-01-31] MEDS: cefTRIAXone SOD 1 GM in D5W MINI-BAG PLUS 50 ML IV SCH (09:18)
[2020-01-31] MEDS: LOSARTAN 50MG TABLET PO SCH (09:19)
[2020-01-31] MEDS: SERTRALINE 100 MG TAB PO SCH (09:20)
[2020-01-31] MEDS: APIXABAN 2.5 MG TAB (ELIQUIS) PO SCH ×2 (09:20→20:06)
[2020-01-31] MEDS: ISOSORBIDE MON. (IMDUR) 30 MG XR TAB PO SCH (09:20)
[2020-01-31] MEDS: FUROSEMIDE 20 MG TAB PO SCH (09:20)
[2020-01-31] MEDS: LIDOCAINE 5% (LIDODERM) PATCH TD SCH (09:21)
[2020-01-31] MEDS: DICLOFENAC EPOLAMINE 1.3 % PATCH TOP SCH ×2 (09:21→20:07)
[2020-01-31] MEDS: MIRALAX *UNIT DOSE* 17GM PACKET PO SCH ×2 (09:22→20:06)
[2020-01-31] MEDS: SENOKOT S TAB PO SCH ×2 (09:22→20:06)
--- NOTE | 2020-01-31 13:15 | IPNPDOC ---
Text Note Date of Service The patient was seen on 01/31/20. NOTE Subjective: Pt is more awake/alert. No focal deficits. No CP/SOB/palpitations. No N/V/abd pain. Feels well. Objective: Vitals: (see below) General: No acute distress, laying comfortably in bed. HEENT: Moist mucous membranes. Neck: No JVD or lymphadenopathy Cardiac: RRR, No murmurs Pulm: Clear to auscultation b/l. No wheezing, rhonchi Abd: NT/ND + BS Ext: No edema or cyanosis. Strength 5/5 BLE. Distal pulses intact. Labs (see below) Images: CT L spine IMPRESSION: 1. L4 inferior endplate depression, potentially worrisome for acute injury. 2. Degenerative disc disease and spondylosis in a background MRI L spine IMPRESSION: 1. Suspected L4 inferior endplate fracture with associated widening of the intervertebral disc space, potentially hyperextension injury. 2. Degenerative disc disease and spondylosis. Assessment/Plan Metabolic encephalopathy - Resolved 2/2 UTI and opioids (held) - Start rocephin pend cx - bld/urine cx - afebrile - Also likely 2/2 hypothyroidism (TSH 90s). Levothyroxine dose adjusted. - Will need thyroid function tests repeated in 4-6 weeks and close follow up with PCP and Endocrinology. Lumbar vertebral compression # s/p mechanical fall. pain control with tylenol, oxycodone. lidoderm patch and diclofenac patch Pt/OT - MRI L spine (see above) - Ortho consult; appreciate input; recc brace and PT. Paroxysmal Afib continue metoprolol, eliquis. Hypertension controlled Hypothyroid Synthroid CAD s/p stents in 2018, no issues at present HLD, statin Right leg DVT, on eliquis GERD, PPI Chronic left hip pain, OA, left leg radiculopathy PT/OT DVT prophy: Eliquis Pt/daughter agreeable with back brace; ortho ordered. Pending ARU screen/acceptance. Transfer to [facility] status. VS,Fishbone, I+O VS, Fishbone, I+O Laboratory Tests 01/31/20 08:24 Vital Signs Date Time Temp Pulse Resp B/P (MAP) Pulse Ox O2 Delivery O2 Flow Rate FiO2 01/31/20 09:20 123/54 01/31/20 06:00 97.8 54 18 96 Room Air I&O- Last 24 Hours up to 6 AM 01/31/20 06:00 Intake Total 1050 ml Output Total 200 ml Balance 850 ml JAGDISH JONES MD Jan 31, 2020 13:15
[2020-01-31 14:00] VITALS: BP 102/55
[2020-01-31] MEDS: ASPIRIN 81 MG ENTERIC TAB PO SCH (20:06)
[2020-01-31] MEDS: SPIRONOLACTONE 25 MG TAB PO SCH (20:06)
[2020-01-31] MEDS: ROSUVASTATIN 10 MG TAB (CRESTOR) PO SCH (20:06)
[2020-01-31] MEDS: **NOTE PATIENT COMMENT** MISC XX SCH (20:11)
[2020-01-31] MEDS: METOPROLOL SUCC (TopROL XL) 100MG *XL* TAB PO SCH (20:11)
[2020-01-31 22:00] VITALS: BP 135/63
[2020-02-01] MEDS: LEVOTHYROXINE 100MCG TABLET (0.1MG) PO SCH (05:26)
[2020-02-01 06:00] VITALS: BP 139/66
[2020-02-01] MEDS: LIDOCAINE 5% (LIDODERM) PATCH TD SCH (08:16)
[2020-02-01] MEDS: MIRALAX *UNIT DOSE* 17GM PACKET PO SCH ×2 (08:16→19:33)
[2020-02-01] MEDS: OMEPRAZOLE 20 MG CAP PO SCH (08:16)
[2020-02-01] MEDS: SENOKOT S TAB PO SCH ×2 (08:16→19:33)
[2020-02-01] MEDS: SERTRALINE 100 MG TAB PO SCH (08:17)
[2020-02-01] MEDS: ACETAMINOPHEN 500 MG TAB PO PRN ×2 (08:17→19:35)
[2020-02-01] MEDS: LOSARTAN 50MG TABLET PO SCH (08:17)
[2020-02-01] MEDS: APIXABAN 2.5 MG TAB (ELIQUIS) PO SCH ×2 (08:17→19:34)
[2020-02-01] MEDS: FUROSEMIDE 20 MG TAB PO SCH (08:17)
[2020-02-01] MEDS: DICLOFENAC EPOLAMINE 1.3 % PATCH TOP SCH ×2 (08:18→19:33)
[2020-02-01] MEDS: ISOSORBIDE MON. (IMDUR) 30 MG XR TAB PO SCH (08:18)
[2020-02-01] MEDS: cefTRIAXone SOD 1 GM in D5W MINI-BAG PLUS 50 ML IV SCH (09:21)
[2020-02-01 14:00] VITALS: BP 131/67
[2020-02-01] MEDS: SPIRONOLACTONE 25 MG TAB PO SCH (19:34)
[2020-02-01] MEDS: ROSUVASTATIN 10 MG TAB (CRESTOR) PO SCH (19:34)
[2020-02-01] MEDS: ASPIRIN 81 MG ENTERIC TAB PO SCH (19:34)
[2020-02-01] MEDS: METOPROLOL SUCC (TopROL XL) 100MG *XL* TAB PO SCH (19:36)
[2020-02-01] MEDS: **NOTE PATIENT COMMENT** MISC XX SCH (21:00)
[2020-02-01 22:00] VITALS: BP 112/57
[2020-02-02] MEDS: ACETAMINOPHEN 500 MG TAB PO PRN ×3 (03:15→20:39)
[2020-02-02] MEDS: LEVOTHYROXINE 100MCG TABLET (0.1MG) PO SCH (05:56)
[2020-02-02 06:00] VITALS: BP 163/71
[2020-02-02] MEDS: LOSARTAN 50MG TABLET PO SCH (09:05)
[2020-02-02] MEDS: OMEPRAZOLE 20 MG CAP PO SCH (09:05)
[2020-02-02] MEDS: SENOKOT S TAB PO SCH ×2 (09:05→20:36)
[2020-02-02] MEDS: APIXABAN 2.5 MG TAB (ELIQUIS) PO SCH ×2 (09:06→20:36)
[2020-02-02] MEDS: MIRALAX *UNIT DOSE* 17GM PACKET PO SCH ×2 (09:06→20:40)
[2020-02-02] MEDS: FUROSEMIDE 20 MG TAB PO SCH (09:06)
[2020-02-02] MEDS: ISOSORBIDE MON. (IMDUR) 30 MG XR TAB PO SCH (09:06)
[2020-02-02] MEDS: SERTRALINE 100 MG TAB PO SCH (09:07)
[2020-02-02] MEDS: LIDOCAINE 5% (LIDODERM) PATCH TD SCH (09:07)
[2020-02-02] MEDS: DICLOFENAC EPOLAMINE 1.3 % PATCH TOP SCH ×2 (09:08→20:36)
[2020-02-02] MEDS: cefTRIAXone SOD 1 GM in D5W MINI-BAG PLUS 50 ML IV SCH (10:00)
[2020-02-02] MEDS: CEFDINIR 300 MG CAP (OMNICEF) PO SCH (11:11)
--- NOTE | 2020-02-02 11:50 | CR ---
DATE OF CONSULTATION: 01/28/2020 INDICATION: L4 compression fracture. HISTORY OF PRESENT ILLNESS: Alyssa Pabon is an 89-year-old walker ambulator at [facility] who had a mechanical fall several days ago, and due to inability walk from pain was admitted to [facility]. Imaging in the emergency room (ER) revealed severe left hip osteoarthritis with femoral head collapse and a very small L4 inferior endplate fracture. This is in the setting of advanced adult scoliosis with multilevel degenerative change and neural foraminal narrowing. I discussed the patient symptoms at the bedside, and the patient was not able to answer all my questions. A suspected degree of dementia here. She also seemed agitated. She is reporting pain in her lower back and left hip. She does not report any new numbness or tingling. When asked about prior cortisone shots to the left hip, she said she has had one, but the doctor "missed," so it did not work. She also states she has been told by two doctors that she is "too old to have a hip replacement." It does not sound like she has ever had cortisone shots into her lumbar spine. I then reviewed the admitting history and physical (H and P) from the hospitalist, so I reviewed her past medical history, past surgical history, medications, allergies, social history, and review of systems. PHYSICAL EXAMINATION: Reveals an elderly female who is in no distress. She answers some questions. She does not appear to be in any pain when talking. CARDIOVASCULAR: Dorsalis pedis (DP) pulse. PULMONARY: Nonlabored breathing. ABDOMEN: Nondistended. MUSCULOSKELETAL: Patient has a flat foot on her left foot. She will fire extensor hallucis longus (EHL), flexor hallucis longus (FHL), tibialis anterior (TA), and gastroc-soleus (GS). She will not flex her left hip due to pain. She has allodynia with light touch throughout the left leg, basically from the foot up to the mid thigh, so I am unable to assess sensation to light touch. I attempted to asses her knee, as she was reporting some knee pain. She basically had tenderness everywhere, but there is no significant swelling on exam. I then reviewed her x-rays and CT scan Pleas see the earlier dictation for those findings. ASSESSMENT AND PLAN: Alyssa Pabon has a small L4 inferior endplate fracture, which appears to be acute on CT scan. This is in the setting of advanced multilevel degenerative change. I have offered to order an lumbosacral orthosis (LSO)-type brace for the patient to use when ambulating, but specifically stated that she had to discuss this with her children prior to the brace being ordered. It is a brace that she does not have to wear in bed or if sitting, but if walking it would likely help with her pain. I have recommended she followup in our office with Shiva or Fer in 2-3 weeks for a repeat x-ray of the lumbar spine to make sure there has been no progression of the fracture. I made that recommendation to the patient. It is unclear if she will want to follow through on that. Regarding the left hip, In formed her that her arthritis is so severe that she is likely going to continue to have pain in the hip, and she should consider an image-guided intra-articular cortisone shot on an outpatient basis. She did not really respond to that recommendation. Other than following up in the office in 2-3 weeks for repeat lumbar spine x-ray, patient can otherwise followup with pain management if she wants to consider any cortisone shots. Please re-consult orthopedics should there be any changes in her clinical course or for any other concerns. JOSEF
--- NOTE | 2020-02-02 11:52 | REP ---
PELVIS BILATERAL HIP: 5-VIEWS HISTORY: Left hip and back pain. FINDINGS: AP view of the pelvis and AP and frog leg views of both hips are presented. There is profound osteoarthritis affecting the left hip with flattening and remodeling of the femoral head, joint space obliteration, extension sclerosis on both sides of the joint, and subcortical cyst formation. No acute fracture is seen. There are mild osteoarthritic changes affecting the right hip with joint space narrowing and superior acetabular spurring. Bony pelvic ring is intact. There has been no change in the appearance of either hip since the 01/24/2020 prior radiographs. There is some subcortical cyst formation on the right as well. There is a bone island in the right side of the sacrum unchanged from prior radiographs including 11/28/2019. IMPRESSION: Severe osteoarthritis left hip with flattening and erosion of the femoral head. Mild osteoarthritic change in the right hip with subcortical cyst formation on both sides. No acute bony abnormality. MTDD
[2020-02-02 14:00] VITALS: BP 124/68
[2020-02-02] MEDS: SPIRONOLACTONE 25 MG TAB PO SCH (20:36)
[2020-02-02] MEDS: ASPIRIN 81 MG ENTERIC TAB PO SCH (20:36)
[2020-02-02] MEDS: METOPROLOL SUCC (TopROL XL) 100MG *XL* TAB PO SCH (20:36)
[2020-02-02] MEDS: ROSUVASTATIN 10 MG TAB (CRESTOR) PO SCH (20:37)
[2020-02-02] MEDS: **NOTE PATIENT COMMENT** MISC XX SCH (20:39)
[2020-02-03] MEDS: LEVOTHYROXINE 100MCG TABLET (0.1MG) PO SCH (05:19)
[2020-02-03] MEDS: ACETAMINOPHEN 500 MG TAB PO PRN ×3 (05:20→21:05)
[2020-02-03 06:00] VITALS: BP 161/74
[2020-02-03] MEDS: LIDOCAINE 5% (LIDODERM) PATCH TD SCH ×2 (09:00→09:22)
[2020-02-03] MEDS: MIRALAX *UNIT DOSE* 17GM PACKET PO SCH ×2 (09:00→21:00)
[2020-02-03] MEDS: APIXABAN 2.5 MG TAB (ELIQUIS) PO SCH ×3 (09:00→21:04)
[2020-02-03] MEDS: DICLOFENAC EPOLAMINE 1.3 % PATCH TOP SCH ×3 (09:00→21:00)
[2020-02-03] MEDS: OMEPRAZOLE 20 MG CAP PO SCH (09:22)
[2020-02-03] MEDS: SENOKOT S TAB PO SCH ×2 (09:23→21:00)
[2020-02-03] MEDS: CEFDINIR 300 MG CAP (OMNICEF) PO SCH (09:23)
[2020-02-03] MEDS: SERTRALINE 100 MG TAB PO SCH (09:23)
[2020-02-03] MEDS: ISOSORBIDE MON. (IMDUR) 30 MG XR TAB PO SCH (09:23)
[2020-02-03] MEDS: FUROSEMIDE 20 MG TAB PO SCH (09:24)
[2020-02-03] MEDS: LOSARTAN 50MG TABLET PO SCH (09:24)
[2020-02-03 14:00] VITALS: BP 110/54
[2020-02-03] MEDS: **NOTE PATIENT COMMENT** MISC XX SCH (21:00)
[2020-02-03] MEDS: ROSUVASTATIN 10 MG TAB (CRESTOR) PO SCH (21:04)
[2020-02-03] MEDS: SPIRONOLACTONE 25 MG TAB PO SCH (21:04)
[2020-02-03] MEDS: METOPROLOL SUCC (TopROL XL) 100MG *XL* TAB PO SCH (21:04)
[2020-02-03] MEDS: ASPIRIN 81 MG ENTERIC TAB PO SCH (21:04)
[2020-02-03] MEDS: traMADol 50 MG TAB PO PRN (21:05)
[2020-02-04] MEDS: LEVOTHYROXINE 100MCG TABLET (0.1MG) PO SCH (05:24)
[2020-02-04] MEDS: ACETAMINOPHEN 500 MG TAB PO PRN ×2 (05:25→21:23)
[2020-02-04] MEDS: traMADol 50 MG TAB PO PRN ×2 (05:25→12:51)
[2020-02-04 06:00] VITALS: BP 173/73
[2020-02-04] MEDS: APIXABAN 2.5 MG TAB (ELIQUIS) PO SCH ×2 (08:25→21:22)
[2020-02-04] MEDS: SENOKOT S TAB PO SCH ×2 (08:25→21:23)
[2020-02-04] MEDS: ISOSORBIDE MON. (IMDUR) 30 MG XR TAB PO SCH (08:25)
[2020-02-04] MEDS: FUROSEMIDE 20 MG TAB PO SCH (08:25)
[2020-02-04] MEDS: LOSARTAN 50MG TABLET PO SCH (08:25)
[2020-02-04] MEDS: MIRALAX *UNIT DOSE* 17GM PACKET PO SCH ×3 (08:26→21:23)
[2020-02-04] MEDS: SERTRALINE 100 MG TAB PO SCH (08:26)
[2020-02-04] MEDS: CEFDINIR 300 MG CAP (OMNICEF) PO SCH (08:26)
[2020-02-04] MEDS: OMEPRAZOLE 20 MG CAP PO SCH (08:26)
[2020-02-04] MEDS: DICLOFENAC EPOLAMINE 1.3 % PATCH TOP SCH ×2 (08:26→21:23)
[2020-02-04] MEDS: LIDOCAINE 5% (LIDODERM) PATCH TD SCH (08:26)
[2020-02-04 14:00] VITALS: BP 150/70
[2020-02-04] MEDS: SPIRONOLACTONE 25 MG TAB PO SCH (21:22)
[2020-02-04] MEDS: METOPROLOL SUCC (TopROL XL) 100MG *XL* TAB PO SCH (21:22)
[2020-02-04] MEDS: ROSUVASTATIN 10 MG TAB (CRESTOR) PO SCH (21:22)
[2020-02-04] MEDS: ASPIRIN 81 MG ENTERIC TAB PO SCH (21:23)
[2020-02-04] MEDS: **NOTE PATIENT COMMENT** MISC XX SCH (21:28)
[2020-02-05] MEDS: LEVOTHYROXINE 100MCG TABLET (0.1MG) PO SCH (05:22)
[2020-02-05] MEDS: traMADol 50 MG TAB PO PRN ×2 (05:23→20:45)
[2020-02-05] MEDS: ACETAMINOPHEN 500 MG TAB PO PRN (05:23)
[2020-02-05 06:00] VITALS: BP 168/82
[2020-02-05 07:55] VITALS: BP 146/70
[2020-02-05] MEDS: SENOKOT S TAB PO SCH ×2 (08:00→20:43)
[2020-02-05] MEDS: MIRALAX *UNIT DOSE* 17GM PACKET PO SCH ×2 (08:00→20:45)
[2020-02-05] MEDS: FUROSEMIDE 20 MG TAB PO SCH (08:02)
[2020-02-05] MEDS: SERTRALINE 100 MG TAB PO SCH (08:02)
[2020-02-05] MEDS: APIXABAN 2.5 MG TAB (ELIQUIS) PO SCH ×2 (08:03→20:45)
[2020-02-05] MEDS: LOSARTAN 50MG TABLET PO SCH (08:04)
[2020-02-05] MEDS: ISOSORBIDE MON. (IMDUR) 30 MG XR TAB PO SCH (08:05)
[2020-02-05] MEDS: CEFDINIR 300 MG CAP (OMNICEF) PO SCH (08:05)
[2020-02-05] MEDS: OMEPRAZOLE 20 MG CAP PO SCH (08:05)
[2020-02-05] MEDS: DICLOFENAC EPOLAMINE 1.3 % PATCH TOP SCH ×2 (10:54→20:46)
[2020-02-05] MEDS: LIDOCAINE 5% (LIDODERM) PATCH TD SCH (10:55)
[2020-02-05] MEDS: ROSUVASTATIN 10 MG TAB (CRESTOR) PO SCH (20:39)
[2020-02-05] MEDS: METOPROLOL SUCC (TopROL XL) 100MG *XL* TAB PO SCH (20:43)
[2020-02-05] MEDS: ASPIRIN 81 MG ENTERIC TAB PO SCH (20:44)
[2020-02-05] MEDS: SPIRONOLACTONE 25 MG TAB PO SCH (20:45)
[2020-02-05] MEDS: **NOTE PATIENT COMMENT** MISC XX SCH (20:46)
[2020-02-06] MEDS: LEVOTHYROXINE 100MCG TABLET (0.1MG) PO SCH (05:41)
[2020-02-06 07:30] VITALS: BP 137/66
[2020-02-06] MEDS: SENOKOT S TAB PO SCH ×2 (08:05→21:00)
[2020-02-06] MEDS: APIXABAN 2.5 MG TAB (ELIQUIS) PO SCH ×2 (08:06→22:06)
[2020-02-06] MEDS: FUROSEMIDE 20 MG TAB PO SCH (08:06)
[2020-02-06] MEDS: SERTRALINE 100 MG TAB PO SCH (08:06)
[2020-02-06] MEDS: OMEPRAZOLE 20 MG CAP PO SCH (08:06)
[2020-02-06] MEDS: MIRALAX *UNIT DOSE* 17GM PACKET PO SCH ×2 (08:06→21:00)
[2020-02-06] MEDS: LOSARTAN 50MG TABLET PO SCH (08:07)
[2020-02-06] MEDS: ISOSORBIDE MON. (IMDUR) 30 MG XR TAB PO SCH (08:08)
[2020-02-06] MEDS: LIDOCAINE 5% (LIDODERM) PATCH TD SCH (11:21)
[2020-02-06] MEDS: DICLOFENAC EPOLAMINE 1.3 % PATCH TOP SCH ×2 (11:21→22:08)
[2020-02-06] MEDS: **NOTE PATIENT COMMENT** MISC XX SCH (21:00)
[2020-02-06] MEDS: SPIRONOLACTONE 25 MG TAB PO SCH (22:05)
[2020-02-06] MEDS: ASPIRIN 81 MG ENTERIC TAB PO SCH (22:05)
[2020-02-06] MEDS: METOPROLOL SUCC (TopROL XL) 100MG *XL* TAB PO SCH (22:07)
[2020-02-06] MEDS: ROSUVASTATIN 10 MG TAB (CRESTOR) PO SCH (22:08)
[2020-02-07] MEDS: LEVOTHYROXINE 100MCG TABLET (0.1MG) PO SCH (05:44)
[2020-02-07 06:00] VITALS: BP 143/73
[2020-02-07] MEDS: traMADol 50 MG TAB PO PRN (06:06)
[2020-02-07] MEDS: ISOSORBIDE MON. (IMDUR) 30 MG XR TAB PO SCH (09:00)
[2020-02-07] MEDS: LOSARTAN 50MG TABLET PO SCH (09:00)
[2020-02-07] MEDS: OMEPRAZOLE 20 MG CAP PO SCH (10:25)
[2020-02-07] MEDS: DICLOFENAC EPOLAMINE 1.3 % PATCH TOP SCH ×2 (10:25→21:00)
[2020-02-07] MEDS: MIRALAX *UNIT DOSE* 17GM PACKET PO SCH ×2 (10:26→21:00)
[2020-02-07] MEDS: LIDOCAINE 5% (LIDODERM) PATCH TD SCH (10:26)
[2020-02-07] MEDS: APIXABAN 2.5 MG TAB (ELIQUIS) PO SCH ×2 (10:26→21:00)
[2020-02-07] MEDS: SENOKOT S TAB PO SCH ×2 (10:28→21:00)
[2020-02-07] MEDS: SERTRALINE 100 MG TAB PO SCH (10:29)
[2020-02-07] MEDS: FUROSEMIDE 20 MG TAB PO SCH (10:29)
[2020-02-07 20:00] VITALS: BP 135/76
[2020-02-07] MEDS: **NOTE PATIENT COMMENT** MISC XX SCH (21:00)
[2020-02-07] MEDS: METOPROLOL SUCC (TopROL XL) 100MG *XL* TAB PO SCH (21:00)
[2020-02-07] MEDS: ROSUVASTATIN 10 MG TAB (CRESTOR) PO SCH (21:00)
[2020-02-07] MEDS: ASPIRIN 81 MG ENTERIC TAB PO SCH (21:00)
[2020-02-07] MEDS: SPIRONOLACTONE 25 MG TAB PO SCH (21:00)
[2020-02-08] MEDS: LEVOTHYROXINE 100MCG TABLET (0.1MG) PO SCH (05:51)
[2020-02-08 06:00] VITALS: BP 136/76
[2020-02-08] MEDS: MIRALAX *UNIT DOSE* 17GM PACKET PO SCH ×2 (09:00→20:20)
[2020-02-08] MEDS: SENOKOT S TAB PO SCH ×2 (09:00→20:20)
[2020-02-08] MEDS: LOSARTAN 50MG TABLET PO SCH (09:50)
[2020-02-08] MEDS: APIXABAN 2.5 MG TAB (ELIQUIS) PO SCH ×2 (09:50→20:20)
[2020-02-08] MEDS: SERTRALINE 100 MG TAB PO SCH (09:51)
[2020-02-08] MEDS: OMEPRAZOLE 20 MG CAP PO SCH (09:51)
[2020-02-08] MEDS: ISOSORBIDE MON. (IMDUR) 30 MG XR TAB PO SCH (09:51)
[2020-02-08] MEDS: traMADol 50 MG TAB PO PRN (09:52)
[2020-02-08] MEDS: FUROSEMIDE 20 MG TAB PO SCH (09:52)
[2020-02-08] MEDS: DICLOFENAC EPOLAMINE 1.3 % PATCH TOP SCH ×2 (09:53→20:20)
[2020-02-08] MEDS: LIDOCAINE 5% (LIDODERM) PATCH TD SCH (09:54)
[2020-02-08 09:55] VITALS: BP 130/70
[2020-02-08] MEDS: SPIRONOLACTONE 25 MG TAB PO SCH (20:19)
[2020-02-08] MEDS: ASPIRIN 81 MG ENTERIC TAB PO SCH (20:20)
[2020-02-08] MEDS: METOPROLOL SUCC (TopROL XL) 100MG *XL* TAB PO SCH (20:20)
[2020-02-08] MEDS: ROSUVASTATIN 10 MG TAB (CRESTOR) PO SCH (20:20)
[2020-02-08] MEDS: **NOTE PATIENT COMMENT** MISC XX SCH (20:20)
[2020-02-09] MEDS: LEVOTHYROXINE 100MCG TABLET (0.1MG) PO SCH (05:14)
[2020-02-09 05:42] VITALS: BP 141/78
[2020-02-09] MEDS: DICLOFENAC EPOLAMINE 1.3 % PATCH TOP SCH ×2 (10:26→20:58)
[2020-02-09] MEDS: LIDOCAINE 5% (LIDODERM) PATCH TD SCH (10:26)
[2020-02-09] MEDS: MIRALAX *UNIT DOSE* 17GM PACKET PO SCH ×3 (10:26→21:00)
[2020-02-09] MEDS: FUROSEMIDE 20 MG TAB PO SCH (10:27)
[2020-02-09] MEDS: OMEPRAZOLE 20 MG CAP PO SCH (10:28)
[2020-02-09] MEDS: SENOKOT S TAB PO SCH ×2 (10:29→20:58)
[2020-02-09] MEDS: ISOSORBIDE MON. (IMDUR) 30 MG XR TAB PO SCH (10:29)
[2020-02-09] MEDS: APIXABAN 2.5 MG TAB (ELIQUIS) PO SCH ×2 (10:30→20:58)
[2020-02-09] MEDS: LOSARTAN 50MG TABLET PO SCH (10:30)
[2020-02-09] MEDS: SERTRALINE 100 MG TAB PO SCH (10:31)
[2020-02-09 10:42] LABS: CALCIUM LEVEL 9.9 MG/DL (8.8-10.2); CREATININE FOR GFR 1.19 MG/DL (0.55-1.30); GLOMERULAR FILTRATION RATE 45.6 (>32); POTASSIUM SERUM 3.7 MEQ/L (3.5-5.1)
[2020-02-09] MEDS: traMADol 50 MG TAB PO PRN (12:24)
--- NOTE | 2020-02-09 14:21 | IPNPDOC ---
Text Note Date of Service The patient was seen on 02/09/20. NOTE Subjective: Patient seen this morning at bedside. Denies any complaints. Nurses report that she hasn't voided since yesterday morning. She has voided only once in the last 24 hours. She refused meds last night and had become disoriented and agitated so now she has a sitter. Refused breakfast this morning. Patient was helped to however, she failed to void. Labs ordered today did not show any abnormality Physical Exam: Vitals: (see below) General: No acute distress, laying comfortably in bed. HEENT: Moist mucous membranes. Neck: No JVD or lymphadenopathy Cardiac: RRR, No murmurs Pulm: Clear to auscultation b/l. No wheezing, rhonchi Abd: NT/ND + BS Ext: No edema or cyanosis. Strength 5/5 BLE. Distal pulses intact. Labs (see below) Images: CT L spine IMPRESSION: 1. L4 inferior endplate depression, potentially worrisome for acute injury. 2. Degenerative disc disease and spondylosis in a background MRI L spine IMPRESSION: 1. Suspected L4 inferior endplate fracture with associated widening of the intervertebral disc space, potentially hyperextension injury. 2. Degenerative disc disease and spondylosis. Assessment/Plan :89 year old female from [facility] had a mechanical fall 3 days ago on 01/24/20 when she was trying to get into the shower. She tripped over the wheel of her parked walker and slid down the fall to the floor. She was brought to the ED then and had xrays of the hip, leg , CT head done all was negative and was sent back. Today she is brought back to the ED as she has been needing a lot of help with her ADLs and any minor movement like getting out of bed is causing her severe pain in her lower back and left leg. In ED CT lumber spine showed L4 vertebral lower end plate compression fracture acute along with chronic b/l multilevel mild to mederate facet hypertrophy and moderate to severe foraminal narrowing more on the left. Patient was admitted for pain control and inability to ambulate and perform her ADLs. . Acute delirium/behavioral issues with underlying dementia This may be due to sundowning due to prolonged hospitalization, tramadol, sleep deprivation Has not been sleeping for the last 2 nights started on Seroquel, continue sertraline Lumber vertebral compression # s/p mechanical fall. pain control with tylenol, tramadol lidoderm patch and diclofenac patch Pt/OT Ortho consult; recc brace and PT. Metabolic encephalopathy Resolved 2/2 UTI and opioids Also likely 2/2 hypothyroidism (TSH 90s). Levothyroxine dose adjusted. Will need thyroid function tests repeated in 4-6 weeks and close follow up with PCP and Endocrinology. Urine culture was negative. However, finished antibiotic course. Paroxysmal Afib continue metoprolol, eliquis. Hypertension BP very well controlled for an 89 year old frail elderly lady will reduce dose of losartan continue metoprolol Hypothyroid uncontrolled synthroid dose increased will need repeat in 4 to 6 weeks CAD s/p stents in 2018, no issues at present Continuing to beta gino, aspirin, Imdur and statin H/o Right leg DVT, on eliquis GERD, PPI Chronic left hip pain, OA, left leg radiculopathy PT/OT HLD, Rosuvastatin Anxiety and depression On sertraline VS,Billie, I+O VS, Billie, I+O Laboratory Tests 02/09/20 10:11 Vital Signs Date Time Temp Pulse Resp B/P (MAP) Pulse Ox O2 Delivery O2 Flow Rate FiO2 02/09/20 12:24 16 02/09/20 10:29 141/78 02/09/20 05:44 133 89 Room Air 02/09/20 05:42 96.9 I&O- Last 24 Hours up to 6 AM 02/09/20 05:59 Intake Total 800 ml Output Total 0 ml Balance 800 ml CAROLYN RÍOS MD Feb 09, 2020 14:21
[2020-02-09] MEDS: SPIRONOLACTONE 25 MG TAB PO SCH (20:58)
[2020-02-09] MEDS: QUEtiapine FUMARATE 25 MG TAB PO SCH (20:58)
[2020-02-09] MEDS: ASPIRIN 81 MG ENTERIC TAB PO SCH (20:58)
[2020-02-09] MEDS: ROSUVASTATIN 10 MG TAB (CRESTOR) PO SCH (21:02)
[2020-02-09] MEDS: METOPROLOL SUCC (TopROL XL) 100MG *XL* TAB PO SCH (21:02)
[2020-02-09] MEDS: **NOTE PATIENT COMMENT** MISC XX SCH (21:02)
[2020-02-10 06:00] VITALS: BP 142/66
[2020-02-10] MEDS: LEVOTHYROXINE 100MCG TABLET (0.1MG) PO SCH (06:30)
[2020-02-10 08:00] VITALS: BP 148/73
[2020-02-10] MEDS: OMEPRAZOLE 20 MG CAP PO SCH (09:23)
[2020-02-10] MEDS: SERTRALINE 100 MG TAB PO SCH (09:23)
[2020-02-10] MEDS: ISOSORBIDE MON. (IMDUR) 30 MG XR TAB PO SCH (09:24)
[2020-02-10] MEDS: FUROSEMIDE 20 MG TAB PO SCH (09:25)
[2020-02-10] MEDS: SENOKOT S TAB PO SCH ×2 (09:25→21:00)
[2020-02-10] MEDS: LOSARTAN 50MG TABLET PO SCH (09:26)
[2020-02-10] MEDS: APIXABAN 2.5 MG TAB (ELIQUIS) PO SCH ×2 (09:27→21:29)
[2020-02-10] MEDS: LIDOCAINE 5% (LIDODERM) PATCH TD SCH (09:28)
[2020-02-10] MEDS: MIRALAX *UNIT DOSE* 17GM PACKET PO SCH ×2 (09:28→21:00)
[2020-02-10] MEDS: DICLOFENAC EPOLAMINE 1.3 % PATCH TOP SCH ×2 (09:28→21:29)
[2020-02-10 14:06] VITALS: BP 109/55
[2020-02-10] MEDS: QUEtiapine FUMARATE 25 MG TAB PO SCH (21:29)
[2020-02-10] MEDS: SPIRONOLACTONE 25 MG TAB PO SCH (21:31)
[2020-02-10] MEDS: ROSUVASTATIN 10 MG TAB (CRESTOR) PO SCH (21:31)
[2020-02-10] MEDS: **NOTE PATIENT COMMENT** MISC XX SCH (21:31)
[2020-02-10] MEDS: ASPIRIN 81 MG ENTERIC TAB PO SCH (21:31)
[2020-02-10] MEDS: METOPROLOL SUCC (TopROL XL) 100MG *XL* TAB PO SCH (21:31)
[2020-02-10 22:00] VITALS: BP 125/64
[2020-02-11 06:00] VITALS: BP 110/51
[2020-02-11] MEDS: LEVOTHYROXINE 100MCG TABLET (0.1MG) PO SCH (06:14)
[2020-02-11] MEDS: MIRALAX *UNIT DOSE* 17GM PACKET PO SCH ×2 (09:00→20:47)
[2020-02-11] MEDS: OMEPRAZOLE 20 MG CAP PO SCH (09:41)
[2020-02-11] MEDS: APIXABAN 2.5 MG TAB (ELIQUIS) PO SCH ×2 (09:41→20:38)
[2020-02-11] MEDS: SENOKOT S TAB PO SCH ×2 (09:41→20:47)
[2020-02-11] MEDS: LIDOCAINE 5% (LIDODERM) PATCH TD SCH (09:42)
[2020-02-11] MEDS: ISOSORBIDE MON. (IMDUR) 30 MG XR TAB PO SCH (09:42)
[2020-02-11] MEDS: FUROSEMIDE 20 MG TAB PO SCH (09:42)
[2020-02-11] MEDS: DICLOFENAC EPOLAMINE 1.3 % PATCH TOP SCH ×2 (09:42→20:38)
[2020-02-11] MEDS: SERTRALINE 100 MG TAB PO SCH (09:42)
[2020-02-11] MEDS: LOSARTAN 50MG TABLET PO SCH (09:43)
[2020-02-11 19:50] VITALS: BP 109/52
[2020-02-11] MEDS: ASPIRIN 81 MG ENTERIC TAB PO SCH (20:38)
[2020-02-11] MEDS: QUEtiapine FUMARATE 25 MG TAB PO SCH (20:38)
[2020-02-11] MEDS: ROSUVASTATIN 10 MG TAB (CRESTOR) PO SCH (20:38)
[2020-02-11] MEDS: **NOTE PATIENT COMMENT** MISC XX SCH (20:47)
[2020-02-11] MEDS: SPIRONOLACTONE 25 MG TAB PO SCH (21:00)
[2020-02-11] MEDS: METOPROLOL SUCC (TopROL XL) 100MG *XL* TAB PO SCH (21:00)
[2020-02-12 06:00] VITALS: BP 137/68
[2020-02-12] MEDS: LEVOTHYROXINE 100MCG TABLET (0.1MG) PO SCH (06:13)
[2020-02-12] MEDS: SENOKOT S TAB PO SCH (09:00)
[2020-02-12] MEDS: MIRALAX *UNIT DOSE* 17GM PACKET PO SCH (09:00)
[2020-02-12] MEDS: SERTRALINE 100 MG TAB PO SCH (09:29)
[2020-02-12] MEDS: APIXABAN 2.5 MG TAB (ELIQUIS) PO SCH (09:29)
[2020-02-12] MEDS: FUROSEMIDE 20 MG TAB PO SCH (09:29)
[2020-02-12 09:30] VITALS: BP 137/68
[2020-02-12] MEDS: LOSARTAN 50MG TABLET PO SCH (09:30)
[2020-02-12] MEDS: ISOSORBIDE MON. (IMDUR) 30 MG XR TAB PO SCH (09:30)
[2020-02-12] MEDS: OMEPRAZOLE 20 MG CAP PO SCH (09:30)
[2020-02-12] MEDS: LIDOCAINE 5% (LIDODERM) PATCH TD SCH (09:31)
[2020-02-12] MEDS: DICLOFENAC EPOLAMINE 1.3 % PATCH TOP SCH (09:31)
[2020-02-12] MEDS ORDERED: METO1TAB33 PO (12:02)
[2020-02-12] MEDS ORDERED: COZA50TA PO (12:02)
[2020-02-12] MEDS ORDERED: QUET1TAB7 PO (12:02)
[2020-02-12] MEDS ORDERED: DICL1PAT6 TOP (12:02)
[2020-02-12] MEDS ORDERED: LIDO5TD TD (12:02)
[2020-02-12] MEDS ORDERED: TRAM50TA2 PO (12:02)
[2020-02-12] MEDS ORDERED: LEVO100T5 PO (12:02)
--- NOTE | 2020-02-12 12:04 | DS.PDOC ---
Discharge Summary General Date of Admission Jan 27, 2020 at 14:08 Date of Discharge 02/12/20 Attending Physician: HANNAH RASHID MD Discharge Summary PROCEDURES PERFORMED DURING STAY: None ADMITTING DIAGNOSES: lumbar vertebral compression fracture s/p mechanical fall paroxysmal atrial fibrillation hypertension hypothyroidism coronary artery disease s/p stenting 2018 HLD R leg DVT GERD chronic left hip pain due to OA radiculopathy DISCHARGE DIAGNOSES: lumbar vertebral compression fracture s/p mechanical fall paroxysmal atrial fibrillation hypertension hypothyroidism coronary artery disease s/p stenting 2018 HLD R leg DVT GERD chronic left hip pain due to OA radiculopathy anxiety and depression metabolic encephalopathy acute delirium dementia COMPLICATIONS/CHIEF COMPLAINT: Vertebral Fracture,Closed. HISTORY OF PRESENT ILLNESS: 89 year old female from [facility] had a mechanical fall 3 days ago on 01/24/20 when she was trying to get into the shower. She tripped over the wheel of her parked walker and slid down the fall to the floor. She was brought to the ED then and had xrays of the hip, leg , CT head done all was negative and was sent back. Today she is brought back to the ED as she has been needing a lot of help with her ADLs and any minor movement like getting out of bed is causing her severe pain in her lower back and left leg. In ED CT lumber spine showed L4 vertebral lower end plate compression fracture acute along with chronic b/l multilevel mild to mederate facet hypertrophy and moderate to severe foraminal narrowing more on the left. Patient was admitted for pain control and inability to ambulate and perform her ADLs. HOSPITAL COURSE: Acute delirium/behavioral issues with underlying dementia This may be due to sundowning due to prolonged hospitalization, tramadol, sleep deprivation Has not been sleeping well started on Seroquel, continue sertraline Lumber vertebral compression # s/p mechanical fall. pain control with tylenol, tramadol lidoderm patch and diclofenac patch Pt/OT Ortho consult; recc brace and PT. Patient had poor cooperation with PT Metabolic encephalopathy Resolved 2/2 UTI and opioids Also likely 2/2 hypothyroidism (TSH 90s). Levothyroxine dose adjusted. Will need thyroid function tests repeated in 4-6 weeks and close follow up with PCP and Endocrinology. Urine culture was negative. However, finished antibiotic course. Paroxysmal Afib continue metoprolol, eliquis. Hypertension BP very well controlled for an 89 year old frail elderly lady will reduce dose of losartan continue metoprolol Hypothyroid uncontrolled synthroid dose increased will need repeat in 4 to 6 weeks CAD s/p stents in 2018, no issues at present Continuing to beta gino, aspirin, Imdur and statin H/o Right leg DVT, on eliquis GERD, PPI Chronic left hip pain, OA, left leg radiculopathy PT/OT HLD, Rosuvastatin Anxiety and depression On sertraline DISCHARGE MEDICATIONS: Please see below. ALLERGIES: Please see below. PHYSICAL EXAMINATION ON DISCHARGE: VITAL SIGNS: Please see below. General: No acute distress, laying comfortably in bed. HEENT: Moist mucous membranes. Neck: No JVD or lymphadenopathy Cardiac: RRR, normal S1, S2. No murmurs Pulm: CTAB, no wheezing, no rales Abd: NT/ND + BS Ext: No edema or cyanosis. Strength 5/5 BLE. Distal pulses intact. LABORATORY DATA: Please see below. IMAGING: CT L spine IMPRESSION: 1. L4 inferior endplate depression, potentially worrisome for acute injury. 2. Degenerative disc disease and spondylosis in a background MRI L spine IMPRESSION: 1. Suspected L4 inferior endplate fracture with associated widening of the intervertebral disc space, potentially hyperextension injury. 2. Degenerative disc disease and spondylosis. AP pelvis: Severe osteoarthritis left hip with flattening and erosion of the femoral head. Mild osteoarthritic change in the right hip with subcortical cyst formation on both sides. No acute bony abnormality PROGNOSIS: good ACTIVITY: As tolerated DIET: regular DISCHARGE PLAN: transfer to [facility], follow up with PCP, orthopedics DISCHARGE INSTRUCTIONS: follow up with PCP, ortho DISCHARGE CONDITION: Stable TIME SPENT ON DISCHARGE: Greater than 30 minutes. Vital Signs/I&Os Vital Signs Date Time Temp Pulse Resp B/P (MAP) Pulse Ox O2 Delivery O2 Flow Rate FiO2 02/12/20 09:30 137/68 02/12/20 06:00 97.6 92 18 97 Room Air I&O- Last 24 Hours up to 6 AM 02/12/20 06:00 Intake Total 150 ml Balance 150 ml Microbiology Microbiology 02/12/20 Respiratory Virus Panel (PCR) ([facility]ON), Received Pending Discharge Medications Scheduled Apixaban (Eliquis) 2.5 Mg Tablet, 2.5 MG PO BID, (Reported) Aspirin (Aspir 81) 81 Mg Tablet.dr, 81 MG PO QPM, (Reported) Diclofenac Epolamine (Diclofenac Epolamine) 1 Each Patch.td12, 1 PATCH TOP Q12H Furosemide (Furosemide) 20 Mg Tablet, 20 MG PO DAILY, (Reported) Isosorbide Mononitrate (Isosorbide Mononitrate ER) 30 Mg Tab.er.24h, 30 MG PO DAILY, (Reported) Levothyroxine Sodium (Levothyroxine Sodium) 100 Mcg Tablet, 100 MCG PO DAILY@0600 Lidocaine (Lidocaine) 5% Adh..patch, 1 PATCH TD DAILY Losartan Potassium (Cozaar) 50 Mg Tablet, 50 MG PO DAILY Metoprolol Succinate (Metoprolol Succinate) 100 Mg Tab.er.24h, 100 MG PO QHS Omeprazole (Omeprazole) 40 Mg Capsule.dr, 40 MG PO DAILY, (Reported) Quetiapine Fumarate (Quetiapine Fumarate) 25 Mg Tablet, 25 MG PO QPM Rosuvastatin Calcium (Rosuvastatin Calcium) 5 Mg Tablet, 5 MG PO QPM, (Reported) Sertraline HCl (Sertraline HCl) 100 Mg Tablet, 100 MG PO DAILY, (Reported) Spironolactone (Spironolactone) 25 Mg Tablet, 25 MG PO QPM, (Reported) Scheduled PRN Acetaminophen (Acetaminophen) 500 Mg Tablet, 1,000 MG PO Q8H PRN for PAIN, (Reported) Lidocaine HCl (Aspercreme Lidocaine) 73 Ml Liqd.lucero, 1 APLCT TOP Q6H PRN for ARTHRITIS, (Reported) APPLY TO HANDS Nitroglycerin (Nitrostat) 0.4 Mg Tab.subl, 0.4 MG SL Q5MP PRN for CHEST PAIN, (Reported) 1st sign of attack; may repeat every 5 mins; if pain persists after 3 in 15 min, medical attention is recommended Sennosides/Docusate Sodium (Senna-S 8.6-50 mg Tablet) 8.6 Mg-50 Mg Tablet, 1 TAB PO QHS PRN for CONSTIPATION, (Reported) Tramadol HCl (Tramadol HCl) 50 Mg Tablet, 50 MG PO Q6HP PRN for MODERATE PAIN (PS 5-7) Allergies Coded Allergies: No Known Allergies (Unverified , 04/06/19) HANNAH RASHID MD Feb 12, 2020 12:04
== END 2020-02-12 12:50 | DRG 551 ==
LOC: EDBD 10:39 → M ED 10:39 → M ED INP 10:40 → ENRESERV 14:05 → OBSVTOIN 14:08 → M MS5PR 15:49
PROVIDERS: ADMIT Internal Medicine Nephrology; ATTEND Family Medicine
DX: S32.048A Other fracture of fourth lumbar vertebra, initial encounter for closed fracture (principal); G92 Toxic encephalopathy; N39.0 Urinary tract infection, site not specified; F03.91 Unspecified dementia, unspecified severity, with behavioral disturbance; I48.0 Paroxysmal atrial fibrillation; I10 Essential (primary) hypertension; E03.9 Hypothyroidism, unspecified; I25.10 Atherosclerotic heart disease of native coronary artery without angina pectoris; E78.5 Hyperlipidemia, unspecified; M47.26 Other spondylosis with radiculopathy, lumbar region; Z66 Do not resuscitate; K21.9 Gastro-esophageal reflux disease without esophagitis; M16.11 Unilateral primary osteoarthritis, right hip; T40.2X5A Adverse effect of other opioids, initial encounter; M21.42 Flat foot [pes planus] (acquired), left foot; M41.86 Other forms of scoliosis, lumbar region; M51.16 Intervertebral disc disorders with radiculopathy, lumbar region; M25.552 Pain in left hip; W18.09XA Striking against other object with subsequent fall, initial encounter; Y92.091 Bathroom in other non-institutional residence as the place of occurrence of the external cause; Y93.E1 Activity, personal bathing and showering; Y99.8 Other external cause status; Z86.711 Personal history of pulmonary embolism; Z79.01 Long term (current) use of anticoagulants; Z79.82 Long term (current) use of aspirin; Z79.899 Other long term (current) drug therapy; Z95.5 Presence of coronary angioplasty implant and graft; Z98.41 Cataract extraction status, right eye; Z98.42 Cataract extraction status, left eye; Z20.828 Contact with and (suspected) exposure to other viral communicable diseases

== ENCOUNTER → 2020-02-17 | Outpatient (REF) | payer MEDICARE ==
[~2020-02-17] MED LIST changes: +COZA50TA PO; +DICL1PAT6 TOP; +LEVO100T5 PO; +LIDO5TD TD; +METO1TAB33 PO; +QUET1TAB7 PO; +TRAM50TA2 PO
== END ==
LOC: SKLAB3 15:11
PROVIDERS: ATTEND Internal Medicine
DX: E55.9 Vitamin D deficiency, unspecified (principal); Z79.899 Other long term (current) drug therapy

== ENCOUNTER → 2020-03-12 | Outpatient (REF) | LOC: SKLAB3 11:08 | PROVIDERS: ATTEND Internal Medicine | DX: Z20.828 Contact with and (suspected) exposure to other viral communicable diseases (principal) ==

== ENCOUNTER → 2020-03-18 | Outpatient (REF) | payer MEDICARE ==
[~2020-03-18] MED LIST changes: +ISOS1TAB35 PO; -ISOS30TA4 PO; -QUET1TAB7 PO; +QUET25TA3 PO
== END ==
LOC: SKLAB3 03-17 12:55 → EDSTATUS 04-09 13:13
PROVIDERS: ATTEND Internal Medicine
DX: Z20.828 Contact with and (suspected) exposure to other viral communicable diseases (principal)

== ENCOUNTER → 2020-03-19 | Outpatient (REF) | payer MEDICARE ==
[~2020-03-19] MED LIST changes: -ISOS1TAB35 PO; +ISOS30TA4 PO; +QUET1TAB7 PO; -QUET25TA3 PO
[2020-03-19 11:54] LABS: ALBUMIN 3.8 GM/DL (3.2-5.2); BILIRUBIN,TOTAL 0.3 MG/DL (0.2-1.0); CALCIUM LEVEL 10.2 MG/DL (8.8-10.2); CREATININE FOR GFR 1.24 MG/DL (0.55-1.30); FREE T4 1.13 NG/DL (0.76-1.46); GLOMERULAR FILTRATION RATE 43.5 (>32); THYROID STIMULATING HORMONE 21.9 uIU/ML (0.358-3.740); TOTAL PROTEIN 6.9 GM/DL (6.4-8.2)
== END ==
LOC: SKLAB3 07:00
PROVIDERS: ATTEND Internal Medicine
DX: E03.9 Hypothyroidism, unspecified (principal)

== ENCOUNTER → 2020-03-25 | Outpatient (REF) | payer MEDICARE ==
[~2020-03-25] MED LIST changes: +ISOS1TAB35 PO; -ISOS30TA4 PO; -QUET1TAB7 PO; +QUET25TA3 PO
== END ==
LOC: SKLAB3 08:00
PROVIDERS: ATTEND Internal Medicine
DX: Z20.828 Contact with and (suspected) exposure to other viral communicable diseases (principal)

== ENCOUNTER → 2020-03-25 | Outpatient (REF) | payer MEDICARE ==
[~2020-03-25] MED LIST changes: -ISOS1TAB35 PO; +ISOS30TA4 PO; +QUET1TAB7 PO; -QUET25TA3 PO
[2020-03-25 08:40] LABS: BLOOD UREA NITROGEN 50 MG/DL (7-18); CARBON DIOXIDE LEVEL 28 MEQ/L (21-32); CHLORIDE LEVEL 106 MEQ/L (98-107); CREATININE FOR GFR 0.83 MG/DL (0.55-1.30); GLOMERULAR FILTRATION RATE > 60.0 (>32); GLUCOSE, FASTING 87 MG/DL (70-100); POTASSIUM SERUM 4.1 MEQ/L (3.5-5.1); SODIUM LEVEL 140 MEQ/L (136-145)
== END ==
LOC: SKLAB3 07:00
PROVIDERS: ATTEND Internal Medicine
DX: R63.8 Other symptoms and signs concerning food and fluid intake (principal)

== ENCOUNTER → 2020-04-01 | Outpatient (REF) | payer MEDICARE ==
[2020-04-01 09:41] LABS: CALCIUM LEVEL 9.3 MG/DL (8.8-10.2); CREATININE FOR GFR 1.07 MG/DL (0.55-1.30); GLOMERULAR FILTRATION RATE 51.5 (>32)
== END ==
LOC: SKLAB3 07:11
PROVIDERS: ATTEND Internal Medicine
DX: R63.8 Other symptoms and signs concerning food and fluid intake (principal)

== ENCOUNTER → 2020-04-01 | Outpatient (REF) | payer MEDICARE ==
[~2020-04-01] MED LIST changes: +ISOS1TAB35 PO; -ISOS30TA4 PO; -QUET1TAB7 PO; +QUET25TA3 PO
== END ==
LOC: SKLAB3 08:00
PROVIDERS: ATTEND Internal Medicine
DX: Z20.828 Contact with and (suspected) exposure to other viral communicable diseases (principal)

== ENCOUNTER → 2020-04-07 | Outpatient (REF) | payer MEDICARE ==
[~2020-04-07] MED LIST changes: -ISOS1TAB35 PO; +ISOS30TA4 PO; +QUET1TAB7 PO; -QUET25TA3 PO
== END ==
LOC: SKLAB3 08:51
PROVIDERS: ATTEND Internal Medicine
DX: Z53.9 Procedure and treatment not carried out, unspecified reason (principal)

== ENCOUNTER → 2020-04-08 | Outpatient (REF) | payer MEDICARE | LOC: SKLAB3 07:03 | PROVIDERS: ATTEND Internal Medicine | DX: Z20.828 Contact with and (suspected) exposure to other viral communicable diseases (principal) ==

== ENCOUNTER → 2020-04-14 | Outpatient (REF) | payer MEDICARE | LOC: SKLAB3 10:08 | PROVIDERS: ATTEND Internal Medicine | DX: E03.9 Hypothyroidism, unspecified (principal) ==

== ENCOUNTER → 2020-04-15 | Outpatient (REF) | payer MEDICARE | LOC: SKLAB3 10:07 | PROVIDERS: ATTEND Internal Medicine | DX: Z20.828 Contact with and (suspected) exposure to other viral communicable diseases (principal) ==

== ENCOUNTER → 2020-04-16 | Outpatient (REF) | payer MEDICARE | LOC: SKLAB3 14:21 | PROVIDERS: ATTEND Internal Medicine | DX: Z20.828 Contact with and (suspected) exposure to other viral communicable diseases (principal) ==

== ENCOUNTER → 2020-04-22 | Outpatient (REF) | payer MEDICARE | LOC: SKLAB3 07:00 | PROVIDERS: ATTEND Internal Medicine | DX: Z20.828 Contact with and (suspected) exposure to other viral communicable diseases (principal) ==

== ENCOUNTER → 2020-04-29 | Outpatient (REF) | payer MEDICARE | LOC: SKLAB3 07:02 | PROVIDERS: ATTEND Internal Medicine | DX: Z20.828 Contact with and (suspected) exposure to other viral communicable diseases (principal) ==

== ENCOUNTER → 2020-05-06 | Outpatient (REF) | payer MEDICARE | LOC: SKLAB3 09:42 | PROVIDERS: ATTEND Internal Medicine | DX: Z11.52 Encounter for screening for COVID-19 (principal) ==

== ENCOUNTER → 2020-05-13 | Outpatient (REF) | payer MEDICARE | LOC: SKLAB3 10:01 | PROVIDERS: ATTEND Internal Medicine | DX: Z20.822 Contact with and (suspected) exposure to COVID-19 (principal) ==

== ENCOUNTER → 2020-05-19 | Outpatient (REF) | payer MEDICARE ==
[~2020-05-19] MED LIST changes: +ISOS1TAB35 PO; -ISOS30TA4 PO; -QUET1TAB7 PO; +QUET25TA3 PO
== END ==
LOC: SKLAB3 07:07
PROVIDERS: ATTEND Internal Medicine
DX: E03.9 Hypothyroidism, unspecified (principal)

== ENCOUNTER → 2020-05-20 | Outpatient (REF) | payer MEDICARE | LOC: SKLAB3 07:00 | PROVIDERS: ATTEND Internal Medicine | DX: Z20.822 Contact with and (suspected) exposure to COVID-19 (principal) ==

== ENCOUNTER → 2020-05-27 | Outpatient (REF) | payer MEDICARE | LOC: SKLAB3 14:49 | PROVIDERS: ATTEND Internal Medicine | DX: Z20.822 Contact with and (suspected) exposure to COVID-19 (principal) ==

== ENCOUNTER → 2020-06-03 | Outpatient (REF) | payer MEDICARE | LOC: SKLAB3 07:00 | PROVIDERS: ATTEND Internal Medicine | DX: Z11.52 Encounter for screening for COVID-19 (principal) ==

== ENCOUNTER → 2020-06-10 | Outpatient (REF) | payer MEDICARE | LOC: SKLAB3 11:13 | PROVIDERS: ATTEND Internal Medicine | DX: Z20.822 Contact with and (suspected) exposure to COVID-19 (principal) ==

== ENCOUNTER → 2020-06-17 | Outpatient (REF) | payer MEDICARE | LOC: SKLAB3 07:00 | PROVIDERS: ATTEND Internal Medicine | DX: Z20.822 Contact with and (suspected) exposure to COVID-19 (principal) ==

== ENCOUNTER → 2020-06-24 | Outpatient (REF) | payer MEDICARE | LOC: SKLAB3 14:57 | PROVIDERS: ATTEND Internal Medicine | DX: Z20.822 Contact with and (suspected) exposure to COVID-19 (principal) ==

== ENCOUNTER → 2020-07-08 | Outpatient (REF) | payer MEDICARE | LOC: SKLAB3 14:41 | PROVIDERS: ATTEND Internal Medicine | DX: Z20.822 Contact with and (suspected) exposure to COVID-19 (principal) ==

== ENCOUNTER → 2020-07-15 | Outpatient (REF) | payer MEDICARE | LOC: SKLAB3 14:49 | PROVIDERS: ATTEND Internal Medicine | DX: Z20.822 Contact with and (suspected) exposure to COVID-19 (principal) ==